=== PATIENT | female | born 1935 | race Caucasian/White ===

== ENCOUNTER 2016-11-20 10:39 | Emergency (ER) | payer MEDICARE ==
[~2016-11-20] VITALS: Ht 162.6 cm; Wt 62.0 kg
[~2016-11-20 10:39] MED LIST: ALIG4CAP PO; ASPI81TA45 PO; DIOV80TA4 PO; PANT40IN3 PO; PRAV20 PO
[2016-11-20 11:11] VITALS: BP 137/68; PULSE 83; RESP 18; TEMP 98
[2016-11-20] MEDS ORDERED: PANT40TA3 PO (11:17)
[2016-11-20] MEDS ORDERED: LACTCAP8 PO (11:17)
[2016-11-20] MEDS ORDERED: DIOV80TA4 PO (11:17)
[2016-11-20] MEDS ORDERED: ASPI1TAB69 PO (11:17)
[2016-11-20] MEDS ORDERED: PRAV20TA2 PO (11:17)
--- NOTE | 2016-11-20 11:53 | RADHPO ---
EXAM DATE/TIME: 11/20/2016 11:25 [facility] COMPARISON: No previous studies available for comparison. INDICATIONS : Right hand pain & swelling post fall. MEDICAL HISTORY : Hypertension. Chronic obstructive pulmonary disease. Gastroesophageal reflux disease. SURGICAL HISTORY : section. Abdominal aortic aneurysm repair. ORIF left thumb. Cataract. ENCOUNTER: Initial ACUITY: 3 days PAIN SCORE: 10/10 LOCATION: Right hand FINDINGS: Three view examination of the right hand demonstrates a questionable fracture involving the base of t he fourth proximal phalanx. Recommend correlation with point tenderness. Otherwise no other definite acute bony fractures are demonstrated.. There is osteopenia of the bony structures. There is evidence of previous internal fixation of the first proximal phalanx. There is an old fracture involving the proximal carpal navicular bone with sclerosis. There is osteoarthritis involving the PIP and DIP join ts.. CONCLUSION: 1. Possible nondisplaced fracture involving the base of the fourth proximal phalanx. Recommend correl ation with point tenderness. 2. Old fracture involving the carpal navicular bone. 3. Osteoarthritis Tono Irvin MD on November 20, 2016 at 11:48 Board Certified Radiologist. This report was verified electronically.
--- NOTE | 2016-11-20 11:54 | RADHPO ---
EXAM DATE/TIME: 11/20/2016 11:28 [facility] COMPARISON: No previous studies available for comparison. INDICATIONS : Right wrist pain/swelling post fall. MEDICAL HISTORY : Hypertension. Chronic obstructive pulmonary disease. Gastroesophageal reflux disease. SURGICAL HISTORY : Abdominal aortic aneurysm repair. section. ORIF left thumb. Cataract. ENCOUNTER: Initial ACUITY: 3 days PAIN SCORE: 10/10 LOCATION: Right wrist FINDINGS: Three view examination of the right wrist demonstrates an old fracture involving the carpal navicular bone with sclerosis. There is osteopenia the bony structures. There is osteoarthritis at the radioca rpal joint. No definite acute fracture or joint dislocation is seen at the wrist. There appears to be a possible nondisplaced fracture involving the base of the fourth proximal phalanx. Recommend correl ation with point tenderness.. CONCLUSION: No acute fracture involving the wrist. Osteoarthritis. Tono Irvin MD on November 20, 2016 at 11:51 Board Certified Radiologist. This report was verified electronically.
--- NOTE | 2016-11-20 12:08 | PD ---
HPI Chief Complaint: Injury Time Seen by Provider: 11:45 Travel History International Travel<30 days: No Contact w/Intl Traveler<30days: No Traveled to known affect area: No History of Present Illness HPI Patient is an 81-year-old female presenting to emergency department for evaluation of right hand pain. Patient had a mechanical fall on Wednesday (2 days ago). Patient tripped and fell onto her outstretched hand. She presents today with pain and swelling in the fourth and fifth fingers as well as over the fourth and fifth MCP's. She denies any head injury, loss of consciousness, chest pain, shortness of breath, dizziness prior to or after the fall. She reports the pain is a 5 out of 10. Patient does take a baby aspirin daily. PFSH Past Medical History Cancer: No Cardiovascular Problems: Yes (AORTIC STENT) High Cholesterol: Yes COPD: Yes Diabetes: No Endocrine: No GERD: Yes Genitourinary: No Hepatitis: No Hiatal Hernia: No Hypertension: Yes Immune Disorder: No Musculoskeletal: No Neurologic: No Psychiatric: No Reproductive: No Thyroid Disease: No Tetanus Vaccination: > 5 Years Influenza Vaccination: Yes Menopausal: Yes Past Surgical History Abdominal Surgery: Yes (INTRAVASC. AAA STENT PLACEMENT) AICD: No Body Medical Devices: right thumb hardware AAA STENT Cardiac Surgery: No Section: Yes Ear Surgery: No Endocrine Surgery: No Eye Surgery: Yes (LEFT EYE CATARACT EXTRACT.) Genitourinary Surgery: No Joint Replacement: No Pacemaker: No Thoracic Surgery: No Tonsillectomy: Yes Other Surgery: Yes (GANGLION CYST) Social History Alcohol Use: Yes (2 DRINKS PER WEEK) Tobacco Use: No Substance Use: No Allergies-Medications (Allergen,Severity, Reaction): Coded Allergies: Codeine (Unverified Adverse Reaction, Intermediate, NAUSEA VOMITING, ) Reported Meds & Prescriptions Reported Meds & Active Scripts Active Reported Pravastatin 20 Mg Tab 20 Mg PO DAILY Probiotic (Lactobacillus Acidophilus) 1 Cap Cap 1 Cap PO TIDAC Pantoprazole (Pantoprazole Sodium) 40 Mg Tab 40 Mg PO DAILY Diovan (Valsartan) 80 Mg Tab 80 Mg PO DAILY Aspirin 81 Mg Tabdr 81 Mg PO DAILY Review of Systems Except as stated in HPI: all other systems reviewed are Neg Musculoskeletal: Positive: Myalgias, Arthralgias, Edema, Pain Skin: Positive Change in Pigmentation Physical Exam Narrative GENERAL: Well-developed, well-nourished, alert elderly female. Resting comfortably in no acute distress. SKIN: Warm and dry. HEAD: Atraumatic. Normocephalic. EYES: Pupils equal and round. No scleral icterus. No injection or drainage. ENT: No nasal bleeding or discharge. Mucous membranes pink and moist. NECK: Trachea midline. No JVD. CARDIOVASCULAR: Regular rate and rhythm. No murmur appreciated. RESPIRATORY: No accessory muscle use. Clear to auscultation. Breath sounds equal bilaterally. GASTROINTESTINAL: Abdomen soft, non-tender, nondistended. Hepatic and splenic margins not palpable. MUSCULOSKELETAL: No obvious deformities. No clubbing. No cyanosis. Edema and mild ecchymosis noted to the fourth and fifth fingers on the right hand as well as the dorsal aspect of the right hand over the MCP. Decreased strength in right hand physically in the fourth and fifth fingers, positive radial pulse, brisk less than 3 second capillary refill. NEUROLOGICAL: Awake and alert. No obvious cranial nerve deficits. Motor grossly within normal limits. Normal speech. PSYCHIATRIC: Appropriate mood and affect; insight and judgment normal. Data Data Last Documented VS Vital Signs Date Time Temp Pulse Resp B/P Pulse Ox O2 Delivery O2 Flow Rate FiO2 11/20/16 11:11 98.0 83 18 137/68 Orders Hand, Complete ([id number]) (11/20/16 ) Wrist, Complete ([id number]) (11/20/16 ) Ct Brain W/O Iv Contrast(Rout) (11/20/16 ) [facility] Medical Decision Making Medical Screen Exam Complete: Yes Emergency Medical Condition: Yes Interpretation(s) Vital Signs Date Time Temp Pulse Resp B/P Pulse Ox O2 Delivery O2 Flow Rate FiO2 11/20/16 11:11 98.0 83 18 137/68 Differential Diagnosis Fracture versus sprain versus strain versus dislocation versus hemorrhage versus other Narrative Course Patient is an 81-year-old female presenting to the emergency department for evaluation of right hand pain after mechanical fall 2 days ago. Patient is neurologically intact. Patient appears younger than stated age, and has been active since the fall. She does take baby aspirin daily. Patient's vital signs are stable. Imaging ordered and pending. X-ray of the right hand shows a possible nondisplaced proximal phalanx fracture of the fourth finger. Radiologist commended correlation with point tenderness. Patient is tender over that finger specifically. CT scan of the brain pending. Right fourth and fifth fingers will be nieves taped. Patient is refusing the CT scan of her brain. Patient was educated on the risks versus benefit of CT scan. She was educated on the signs and symptoms of a stroke/hemorrhage. She was given strict return precautions. Patient is accompanied by a family member who also verbalized understanding of these instructions. It has been 48 hours since patient fell, she is neurologically intact. Patient is encouraged to follow-up with hand surgeon, she is encouraged follow-up with her primary doctor. Additionally patient can return to emergency department for any new or worsening symptoms. Patient is stable for discharge. Diagnosis Primary Impression: Proximal phalanx fracture of finger Qualified Code: S62.644A - Closed nondisplaced fracture of proximal phalanx of right ring finger, initial encounter Referrals: Hand Surgeon 1 week Patient Instructions: Finger Fracture (ED), General Instructions Additional Instructions: Follow-up with hand surgeon Follow-up with her primary doctor Take [id number] acetaminophen or ibuprofen as needed and as directed for pain Rest, ice, elevate extremity to help alleviate swelling. Med/Other Pt SpecificInfo: No Change to Meds Disposition: 01 DISCHARGE HOME Condition: Stable Shalini Pedersen Nov 20, 2016 12:07
== END 2016-11-20 12:47 | disposition home or self-care (01) ==
LOC: PHED 10:39 → PHEFT 12:47
DX: S62.644A Nondisplaced fracture of proximal phalanx of right ring finger, initial encounter for closed fracture (principal); W01.0XXA Fall on same level from slipping, tripping and stumbling without subsequent striking against object, initial encounter
CPT/HCPCS: 73110; 73130; 99283

== ENCOUNTER 2017-01-07 14:34 | Emergency (ER) | payer MEDICARE ==
[~2017-01-07] VITALS: Ht 162.6 cm; Wt 63.0 kg
[~2017-01-07 14:34] MED LIST changes: -ALIG4CAP PO; +ASPI1TAB69 PO; -ASPI81TA45 PO; +LACTCAP8 PO; -PANT40IN3 PO; +PANT40TA3 PO; -PRAV20 PO; +PRAV20TA2 PO
[2017-01-07 15:01] VITALS: BP 179/105; PULSE 94; RESP 16; TEMP 97.9; O2SAT 98
--- NOTE | 2017-01-07 15:37 | PD ---
HPI Chief Complaint: Laceration/Skin Injury Time Seen by Provider: 15:34 Travel History International Travel<30 days: No Contact w/Intl Traveler<30days: No Traveled to known affect area: No History of Present Illness HPI 81-year-old female with history of hypertension, hyperlipidemia presents to the emergency department for evaluation of laceration to left eyebrow status post trip and fall. Patient states that about an hour ago she was taking the mail to her neighbors front doorstep when she turned too quickly and tripped over her own shoes. States that she fell onto her left knee and hit her left forehead on the pavement. Denies loss of consciousness. Complains of pain around her left forehead and eyebrow where she has a laceration. Denies any headache, lightheadedness, dizziness, nausea, vomiting, numbness or tingling, neck pain, back pain. Unsure of last tetanus vaccination. She takes aspirin daily. Denies any anticoagulation. No other complaints. PFSH Past Medical History Cancer: No Cardiovascular Problems: Yes (AORTIC STENT) High Cholesterol: Yes COPD: Yes Diabetes: No Endocrine: No GERD: Yes Genitourinary: No Hepatitis: No Hiatal Hernia: No Hypertension: Yes Immune Disorder: No Musculoskeletal: No Neurologic: No Psychiatric: No Reproductive: No Thyroid Disease: No Tetanus Vaccination: Unknown Menopausal: Yes Past Surgical History Abdominal Surgery: Yes (INTRAVASC. AAA STENT PLACEMENT) AICD: No Body Medical Devices: right thumb hardware AAA STENT Cardiac Surgery: No Section: Yes Ear Surgery: No Endocrine Surgery: No Eye Surgery: Yes (LEFT EYE CATARACT EXTRACT.) Genitourinary Surgery: No Joint Replacement: No Pacemaker: No Thoracic Surgery: No Tonsillectomy: Yes Other Surgery: Yes (GANGLION CYST) Social History Alcohol Use: Yes (2 DRINKS PER WEEK) Tobacco Use: No Substance Use: No Allergies-Medications (Allergen,Severity, Reaction): Coded Allergies: Codeine (Unverified Adverse Reaction, Intermediate, NAUSEA VOMITING, ) Reported Meds & Prescriptions Reported Meds & Active Scripts Active Reported Pravastatin 20 Mg Tab 20 Mg PO DAILY Probiotic (Lactobacillus Acidophilus) 1 Cap Cap 1 Cap PO TIDAC Pantoprazole (Pantoprazole Sodium) 40 Mg Tab 40 Mg PO BID Diovan (Valsartan) 80 Mg Tab 80 Mg PO DAILY Aspirin 81 Mg Tabdr 81 Mg PO DAILY Review of Systems Except as stated in HPI: all other systems reviewed are Neg Physical Exam Narrative GENERAL: Well-nourished and well-developed pleasant elderly female patient in no acute distress. SKIN: 2 cm laceration to left eyebrow. HEAD: Normocephalic and atraumatic. Tenderness to palpation of left eyebrow region. EYES: No scleral icterus, injection, or drainage. PERRLA. EOMI. No hyphema present. ENT: No septal hematoma or hemotympanum noted. Oropharynx is clear and the airway is patent. NECK: Supple and the trachea is midline. No obvious deformities, crepitus, or midline tenderness noted. CARDIOVASCULAR: Regular rate and rhythm. RESPIRATORY: Breath sounds are equal bilaterally with no accessory muscle use, wheezing, rhonchi, or crackles. GASTROINTESTINAL: Abdomen is soft, non-tender, and nondistended. MUSCULOSKELETAL: Ecchymosis with tenderness to palpation of left anterior knee, full range of motion. DP pulses are 2+ bilaterally. No obvious deformities, swelling, cyanosis, or ecchymosis is present throughout the upper and lower extremities. Patient has full range of motion without any signs of neurovascular compromise. NEUROLOGICAL: Awake, alert, and oriented. Normal speech and gait. Cranial nerves are grossly intact. Data Data Last Documented VS Vital Signs Date Time Temp Pulse Resp B/P Pulse Ox O2 Delivery O2 Flow Rate FiO2 01/07/17 15:01 97.9 94 16 179/[address] Brain W/O Iv Contrast(Rout) (01/07/17 15:32) Ct Facial Bones W/O Iv Cont (01/07/17 15:32) Knee, Complete (4vws) (01/07/17 15:32) Lidocai-Epi 1%-1:100,000 Inj (Xylocaine- (01/07/17 15:45) Tetanus/Diphtheria Tox Adult (Tetanus/Di (01/07/17 15:45) MDM Medical Decision Making Medical Screen Exam Complete: Yes Emergency Medical Condition: Yes Differential Diagnosis Laceration versus abrasion versus contusion versus intracranial hemorrhage versus fracture Narrative Course 81-year-old female presents to the emergency department for evaluation of fall with left eyebrow laceration. Patient is afebrile, vital signs are stable. No focal neurologic deficits. Imaging of the patient's head and facial bones has been ordered and is pending. X-ray imaging of the left knee has been ordered and is pending. Tetanus vaccination was updated here in the ED. Laceration repairs performed, see procedure narrative for further details. Head CT is negative for any acute abnormalities. CT of the facial bones is negative for any acute abnormalities. X-ray of the left knee is negative for any acute abnormalities. Discussed supportive care and proper wound care techniques with the patient and family. She is stable for discharge home. Patient verbalizes understanding and agreement with treatment plans. Procedures Procedure Narrative LACERATION LOCATION: Left eyebrow LENGTH: 2 cm NUMBER OF STITCHES/TONNY: 8 sutures REPAIR: The area of the laceration was prepped with Betadine and sterilely draped. The laceration was infiltrated with 1% lidocaine with epinephrine. The wound was copiously irrigated and explored without evidence of foreign body , tendon injury or neurovascular injury. The wound was closed using 5. 0 Ethilon. This was a single layer repair. Antibiotic ointment and a sterile dressing was applied. The patient was advised to keep the dressing clean and dry. Patient tolerated the procedure well. Diagnosis Primary Impression: Facial laceration Qualified Code: S01.81XA - Facial laceration, initial encounter Additional Impressions: Periorbital contusion of left eye Qualified Code: S05.12XA - Periorbital contusion of left eye, initial encounter Contusion of left knee Qualified Code: S80.02XA - Contusion of left knee, initial encounter Fall Qualified Code: W19.XXXA - Fall, initial encounter Referrals: Primary Care Physician Patient Instructions: Contusion in Adults (ED), Facial Laceration (ED), General Instructions Additional Instructions: Wash wounds gently with soap and water while in the shower. Apply topical antibiotic ointment twice daily. Have sutures removed in 5-7 days. Apply ice for 20 minutes on, 20 minutes off. Follow-up with your Primary Care Physician. Return to the ED for any acute worsening of symptoms. Med/Other Pt SpecificInfo: No Change to Meds Disposition: 01 DISCHARGE HOME Condition: Stable Keeley Keller Jan 07, 2017 15:37
[2017-01-07] MEDS ORDERED: LIDOCAINE 1%/EPINEPHrine 1:100,000 SOLN 20 ML VIAL INFIL ONE (15:45)
[2017-01-07] MEDS ORDERED: TETANUS/DIPHTHERIA TOXOID ADULT 0.5 ML VIAL IM ONE (15:45)
--- NOTE | 2017-01-07 16:06 | RADHPO ---
EXAM DATE/TIME: 01/07/2017 15:55 [facility] COMPARISON: No previous studies available for comparison. INDICATIONS : Left knee pain and bruising after fall today. MEDICAL HISTORY : None. SURGICAL HISTORY : None. ENCOUNTER: Initial ACUITY: 1 day PAIN SCORE: 4/10 LOCATION: Left knee FINDINGS: Four view examination of the left knee demonstrates no evidence of fracture or dislocation. Bony min eralization is normal. The articular surfaces are intact. The suprapatellar soft tissues have a nor mal configuration. CONCLUSION: Unremarkable examination of the left knee. Jose David Simmons MD on January 07, 2017 at 16:05 Board Certified Radiologist. This report was verified electronically.
--- NOTE | 2017-01-07 16:17 | RADHPO ---
EXAM DATE/TIME: 01/07/2017 16:00 [facility] COMPARISON: No previous studies available for comparison. INDICATIONS : Trauma. Fall. Laceration above left eye. RADIATION DOSE: 62.59 CTDIvol (mGy) MEDICAL HISTORY : Chronic obstructive pulmonary disease. Hypertension. SURGICAL HISTORY : None. ENCOUNTER: Initial ACUITY: 1 day PAIN SCALE: 7/10 LOCATION: Left cranial TECHNIQUE: Multiple contiguous axial images were obtained of the head. Using automated exposure control and adj ustment of the mA and/or kV according to patient size, radiation dose was kept as low as reasonably a chievable to obtain optimal diagnostic quality images. FINDINGS: CEREBRUM: The ventricles are normal for age. No evidence of midline shift, mass lesion, hemorrhage or acute in farction. No extra-axial fluid collections are seen. POSTERIOR FOSSA: The cerebellum and brainstem are intact. The 4th ventricle is midline. The cerebellopontine angle i s unremarkable. EXTRACRANIAL: The visualized portion of the orbits is intact. SKULL: The calvaria is intact. No evidence of skull fracture. CONCLUSION: Normal examination. Jose David Simmons MD on January 07, 2017 at 16:15 Board Certified Radiologist. This report was verified electronically.
--- NOTE | 2017-01-07 16:34 | RADHPO ---
EXAM DATE/TIME: 01/07/2017 16:00 [facility] COMPARISON: No previous studies available for comparison. INDICATIONS : Trauma. Fall. Laceration above left eye. RADIATION DOSE: CTDIvol (mGy) MEDICAL HISTORY : Chronic obstructive pulmonary disease. Hypertension. SURGICAL HISTORY : None. ENCOUNTER: Initial ACUITY: 1 day PAIN SCORE: 7/10 LOCATION: Left superior orbit. TECHNIQUE: Volumetric scanning of the facial bones was performed. Using automated exposure control and adjustme nt of the mA and/or kV according to patient size, radiation dose was kept as low as reasonably achiev able to obtain optimal diagnostic quality images. FINDINGS: ORBITS: The orbital and infraorbital osseous structures are intact. The retroconal structures have a normal configuration. No radiopaque foreign bodies are seen. NASAL BONE: The nasal bone and maxillary spine are intact ZYGOMATIC ARCHES: Symmetric without evidence of fracture. SINUSES: The maxillary, ethmoid and frontal sinuses are intact. No air-fluid levels seen. NASAL CAVITY: The nasal septum is intact and midline. The lacrimal ducts are intact. SOFT TISSUES: No radiopaque foreign bodies seen. Marked soft-tissue swelling overlying the left frontal and orbital regions without underlying fracture. INTRACRANIAL: No intracranial air seen. CRIBIFORM PLATE: Grossly intact. CONCLUSION: Marked soft tissue swelling left frontal and periorbital region without evidence of acute fracture. Jose David Simmons MD on January 07, 2017 at 16:32 Board Certified Radiologist. This report was verified electronically.
== END 2017-01-07 17:00 | disposition home or self-care (01) ==
LOC: PHEFT 14:34
DX: S01.112A Laceration without foreign body of left eyelid and periocular area, initial encounter (principal); S80.02XA Contusion of left knee, initial encounter; Z23 Encounter for immunization; I10 Essential (primary) hypertension; E78.00 Pure hypercholesterolemia, unspecified; W01.0XXA Fall on same level from slipping, tripping and stumbling without subsequent striking against object, initial encounter
CPT/HCPCS: 12011; 70450; 70486; 73564; 90471; 90714

== ENCOUNTER 2018-07-15 13:30 | Inpatient (IN) ==
--- NOTE | 2018-07-15 14:53 | ED ---
HPI General Chief Complaint: Fall Stated Complaint: fall Time Seen by Provider: 07/15/18 14:04 Source: patient Mode of arrival: EMS Limitations: no limitations History of Present Illness HPI Narrative: 83-year-old female with a history of HTN and CAD s/p stent placement on ASA presents to the emergency department via EVAC for evaluation of right leg pain after fall from a ladder today. Patient states that she was getting a box out of a loft when she missed a step and she fell back, landing on her right hip. Patient denies hitting her back, neck, or head. She denies loss consciousness, blurred vision, dizziness. Denies shortness of breath or chest pain. Denies numbness or tingling in extremities. Patient states her right hip pain is mild in severity, worse with movement. She was unable to stand up after the incident. MD complaint: Reports fall Onset (ago): hour(s) Fall from: standing Fall witnessed: no Place fall occurred: home Loss of consciousness: none Prolonged down time: no Symptoms prior to fall: Reports none Context: Reports tripped/slipped Location of injury: Reports pelvis Location of injury - extremities: Right: thigh Severity: mild Quality: Reports aching Associated symptoms (after fall): Reports denies Related Data Allergies Allergy/AdvReac Type Severity Reaction Status Date / Time codeine AdvReac Intermediate NAUSEA Unverified 05/11/17 20:17 VOMITING Review of Systems ROS: all other systems reviewed are negative [facility] [place] Medical History Medical History CAD (coronary artery disease) (Acute) HLD (hyperlipidemia) (Acute) HTN (hypertension) (Acute) Surgical History Surgical History H/O cardiac catheterization (Acute) Family History Family History Mother Gynecologic cancer Father Myocardial infarct Social History Social History Substance History: No History of Abuse Second Hand Smoke Exposure: No Smoking Status: Former smoker (Quit 7yrs ago, smoked 1PPDx >20yrs) Tobacco Type: Cigarettes How Often Do You Have a Drink Containing Alcohol: Never Recent Travel in [place] within the Last 8 Weeks: No Recent Out of Country Travel within the Last 8 Weeks: No Immunization History Tetanus Immunization: Unsure Exam Narrative Exam Narrative: GENERAL: Well-developed, well-nourished in no apparent distress SKIN: Focused skin assessment warm/dry. HEAD: Atraumatic. Normocephalic. EYES: Pupils equal and round. No scleral icterus. No injection or drainage. ENT: No nasal bleeding or discharge. Mucous membranes pink and moist. NECK: Trachea midline. No JVD. No midline tenderness CARDIOVASCULAR: Regular rate and rhythm. No murmur appreciated. RESPIRATORY: No accessory muscle use. Clear to auscultation. Breath sounds equal bilaterally. GASTROINTESTINAL: Abdomen soft, non-tender, nondistended. Hepatic and splenic margins not palpable. MUSCULOSKELETAL: No obvious deformities. No clubbing. No cyanosis. No edema. No tenderness palpation of the pelvis. RLE- anatomical position,slightly shortened, flexed knee as position of comfort , pulse, motor, sensory intact. NEUROLOGICAL: Awake and alert. No obvious cranial nerve deficits. Motor grossly within normal limits. Normal speech. PSYCHIATRIC: Appropriate mood and affect; insight and judgment normal. Course Initial Documented Vital Signs Temperature 97.8 F 07/15/18 14:09 Pulse Rate 76 07/15/18 14:09 Respiratory Rate 17 07/15/18 14:09 Blood Pressure 157/69 H 07/15/18 14:09 Pulse Oximetry 98 07/15/18 14:09 Last Documented Vital Signs Temperature 97.7 F 07/15/18 20:00 Pulse Rate 72 07/15/18 20:00 Respiratory Rate 18 07/15/18 20:00 Blood Pressure 130/60 07/15/18 20:00 Pulse Oximetry 94 L 07/15/18 20:00 Medical Decision Making MDM Narrative Medical decision making narrative: 83-year-old female presents to the emergency department via EVAC for evaluation of right hip and leg pain that started after a fall from a ladder today. She denies subsequent trauma of the back, neck or head. Offer pain medication the patient was rather adamant to not receive anything. After imaging studies, she requested medication. Ativan, toradol, and morphine eventually for pain. I spoke with Dr. Early who recommended NPO after midnight and surgery tomorrow. I spoke to Dr. Salguero who agreed to the admission. Medical Screen Exam Complete: Yes Emergency Medical Condition: Yes Differential Diagnosis Differential Diagnosis: Right hip fracture, right hip contusion, right femur fracture, right femur contusion, dislocation Lab Data Result diagrams: 07/15/18 16:30 07/15/18 16:30 Lab Results 07/15/18 07/15/18 07/15/18 Range/Units 16:30 16:30 16:30 WBC 11.1 H (4.0-11.0) th/mm3 RBC 3.36 L (4.00-5.30) mil/mm3 Hgb 10.8 L (11.6-15.3) gm/dL Hct 31.6 L (35.0-46.0) % MCV 94.0 (80.0-100.0) fL MCH 32.0 (27.0-34.0) pg MCHC 34.1 (32.0-36.0) % RDW 13.3 (11.6-17.2) % Plt Count 204 (150-450) th/mm3 MPV 8.7 (7.0-11.0) fL Neut % (Auto) 85.9 H (16.0-70.0) % Lymph % (Auto) 6.6 L (9.0-44.0) % Garvin % (Auto) 5.9 (0.0-8.0) % Eos % (Auto) 1.0 (0.0-4.0) % Baso % (Auto) 0.6 (0.0-2.0) % Neut # (Auto) 9.5 H (1.8-7.7) th/mm3 Lymph # (Auto) 0.7 L (1.0-4.8) th/mm3 Garvin # (Auto) 0.7 (0.0-0.9) th/mm3 Eos # (Auto) 0.1 (0.0-0.4) th/mm3 Baso # (Auto) 0.1 (0.0-0.2) th/mm3 WBC Differential . Differential Comment Auto diff final PT 11.0 (9.8-11.6) sec INR 1.1 Ratio APTT 25.0 (24.3-30.1) sec Sodium 138 (136-145) meq/L Potassium 4.2 (3.5-5.1) meq/L Chloride 106 (98-107) meq/L Carbon Dioxide 26.2 (21.0-32.0) meq/L Anion Gap 6 (5-15) meq/L BUN 28 H (7-18) mg/dL Creatinine 1.00 (0.50-1.00) mg/dL Estimated GFR 53 L (>89) mL/min Random Glucose 97 (74-106) mg/dL Calcium 9.0 (8.5-10.1) mg/dL Total Bilirubin 0.3 (0.2-1.0) mg/dL AST 20 (15-37) U/L ALT 19 (10-53) U/L Alkaline Phosphatase 88 (45-117) U/L Total Protein 6.5 (6.4-8.2) g/dL Albumin 3.3 L (3.4-5.0) g/dL Urine Color (Yellw/Straw) Urine Clarity (Clear) Urine pH (5.0-8.5) Ur Specific [place] (1.002-1.035) Urine Protein (Neg-Trace) mg/dL Urine Glucose (UA) (Negative) mg/dL Urine Ketones (Negative) mg/dL Urine Occult Blood (Negative) Urine Nitrate (Negative) Urine Bilirubin (Negative) Urine Urobilinogen (Less than 2) mg/dL Ur Leukocyte Esterase (Negative) Urine RBC (0-3) /hpf Urine WBC (0-5) /hpf Ur Squamous Epith Cells (0-5) /hpf Hyaline Casts (0-3) /lpf Micro UA Comment Ur Microscopic Review Urine Culture Comments 07/15/18 Range/Units 18:22 WBC (4.0-11.0) th/mm3 RBC (4.00-5.30) mil/mm3 Hgb (11.6-15.3) gm/dL Hct (35.0-46.0) % MCV (80.0-100.0) fL MCH (27.0-34.0) pg MCHC (32.0-36.0) % RDW (11.6-17.2) % Plt Count (150-450) th/mm3 MPV (7.0-11.0) fL Neut % (Auto) (16.0-70.0) % Lymph % (Auto) (9.0-44.0) % Garvin % (Auto) (0.0-8.0) % Eos % (Auto) (0.0-4.0) % Baso % (Auto) (0.0-2.0) % Neut # (Auto) (1.8-7.7) th/mm3 Lymph # (Auto) (1.0-4.8) th/mm3 Garvin # (Auto) (0.0-0.9) th/mm3 Eos # (Auto) (0.0-0.4) th/mm3 Baso # (Auto) (0.0-0.2) th/mm3 WBC Differential Differential Comment PT (9.8-11.6) sec INR Ratio APTT (24.3-30.1) sec Sodium (136-145) meq/L Potassium (3.5-5.1) meq/L Chloride (98-107) meq/L Carbon Dioxide (21.0-32.0) meq/L Anion Gap (5-15) meq/L BUN (7-18) mg/dL Creatinine (0.50-1.00) mg/dL Estimated GFR (>89) mL/min Random Glucose (74-106) mg/dL Calcium (8.5-10.1) mg/dL Total Bilirubin (0.2-1.0) mg/dL AST (15-37) U/L ALT (10-53) U/L Alkaline Phosphatase (45-117) U/L Total Protein (6.4-8.2) g/dL Albumin (3.4-5.0) g/dL Urine Color Yellow (Yellw/Straw) Urine Clarity Hazy H (Clear) Urine pH 6.0 (5.0-8.5) Ur Specific [place] 1.010 (1.002-1.035) Urine Protein Negative (Neg-Trace) mg/dL Urine Glucose (UA) Negative (Negative) mg/dL Urine Ketones Negative (Negative) mg/dL Urine Occult Blood Small H (Negative) Urine Nitrate Negative (Negative) Urine Bilirubin Negative (Negative) Urine Urobilinogen Less than 2 (Less than 2) mg/dL Ur Leukocyte Esterase Moderate H (Negative) Urine RBC 2 (0-3) /hpf Urine WBC 8 H (0-5) /hpf Ur Squamous Epith Cells 4 (0-5) /hpf Hyaline Casts 3 (0-3) /lpf Micro UA Comment Culture indicated Ur Microscopic Review Not Reportable Urine Culture Comments Culture indicated Imaging Data Radiologist's impression: Chest X-Ray 07/15/18 14:23 CONCLUSION: No focal consolidation or effusion. Femur X-Ray 07/15/18 14:24 CONCLUSION: Right femoral neck fracture. Hip X-Ray 07/15/18 14:24 CONCLUSION: Right proximal femur fracture. Discharge Plan Discharge Disposition Patient Disposition: 30 Still Patient Discharge Condition Condition: Stable Discharge Details Diagnosis: Femur fracture, right Physicians Team ED Provider: Teddy Allen ED Midlevel Provider: Clare Noonan Primary Care Provider: UNKNOWN, Attending Provider: Carmelita Salguero Other Providers: Deepak Early Status ED Status: Left Department Discharge Information Discharge Date/Time: 07/15/18 18:52
[2018-07-15] MEDS ORDERED: Ketorolac Inj 30 MG/ML (IVP) Vial IV.PUSH ONE (15:00)
--- NOTE | 2018-07-15 15:24 | XR ---
EXAM DATE: 07/15/2018 2:24 PM EDT AGE/SEX: 83 years / Female INDICATIONS: Right hip pain, post fall today. CLINICAL DATA: This is the patient's initial encounter. Patient reports that signs and symptoms have been present for 1 day and indicates a pain score of 8/10. MEDICAL/SURGICAL HISTORY: None. None. COMPARISON: [facility], XR HIP AP AND LAT, RIGHT, 12/10/2017. . FINDINGS: The aorta and iliac vessels. Bone density is diminished. There is a mildly displaced fracture through the subcapital femoral neck, right femur with superior displacement of the femoral shaft noted. CONCLUSION: Right proximal femur fracture. Electronically signed by: Teddy Duque MD 07/15/2018 3:23 PM EDT
--- NOTE | 2018-07-15 15:24 | XR ---
EXAM DATE: 07/15/2018 2:24 PM EDT AGE/SEX: 83 years / Female INDICATIONS: Right upper leg pain, post fall today. CLINICAL DATA: This is the patient's initial encounter. Patient reports that signs and symptoms have been present for 1 day and indicates a pain score of 8/10. MEDICAL/SURGICAL HISTORY: None. None. COMPARISON: [facility] [place], HIP RIGHT W AP PELVIS 2V, 07/15/2018. . FINDINGS: Subcapital femoral neck fracture, mildly displaced superiorly. No other fractures are seen. Bone dens ity is diminished. CONCLUSION: Right femoral neck fracture. Electronically signed by: Teddy Duque MD 07/15/2018 3:23 PM EDT
--- NOTE | 2018-07-15 15:25 | XR ---
EXAM DATE: 07/15/2018 2:23 PM EDT AGE/SEX: 83 years / Female INDICATIONS: Shortness of breath post fall. CLINICAL DATA: This is the patient's initial encounter. Patient reports that signs and symptoms have been present for 1 day and indicates a pain score of 0/10. MEDICAL/SURGICAL HISTORY: Chronic obstructive pulmonary disease. Hypertension. . Cardiac stent . COMPARISON: No prior exams available for comparison. FINDINGS: A single AP view of the chest demonstrates the lungs to be symmetrically aerated without evidence of mass, infiltrate or effusion. The cardiomediastinal contours are unremarkable. Osseous structures a re intact. CONCLUSION: No focal consolidation or effusion. Electronically signed by: Yoan Padilla MD 07/15/2018 3:24 PM EDT
[2018-07-15 16:39] LABS: Baso # (Auto) 0.1 th/mm3 (0.0-0.2); Baso % (Auto) 0.6 % (0.0-2.0); Eos # (Auto) 0.1 th/mm3 (0.0-0.4); Hematocrit 31.6 % (35.0-46.0); Hemoglobin 10.8 gm/dL (11.6-15.3); Lymph # (Auto) 0.7 th/mm3 (1.0-4.8); Lymph % (Auto) 6.6 % (9.0-44.0); Mean Corpuscular HGB Conc 34.1 % (32.0-36.0); Mean Platelet Volume 8.7 fL (7.0-11.0); Mono # (Auto) 0.7 th/mm3 (0.0-0.9); Mono % (Auto) 5.9 % (0.0-8.0); Neut # (Auto) 9.5 th/mm3 (1.8-7.7); Neut % (Auto) 85.9 % (16.0-70.0); Platelet Count 204 th/mm3 (150-450); Red Blood Count 3.36 mil/mm3 (4.00-5.30); Red Cell Distribution Width 13.3 % (11.6-17.2); White Blood Count 11.1 th/mm3 (4.0-11.0)
[2018-07-15 16:46] LABS: INR 1.1 Ratio
[2018-07-15 17:07] LABS: Albumin 3.3 g/dL (3.4-5.0); Anion Gap 6 meq/L (5-15); Aspartate Aminotransferase 20 U/L (15-37); Blood Urea Nitrogen 28 mg/dL (7-18); Carbon Dioxide 26.2 meq/L (21.0-32.0); Chloride 106 meq/L (98-107); Glomerular Filtration Rate 53 mL/min (>89); Glucose,Random 97 mg/dL (74-106); Potassium 4.2 meq/L (3.5-5.1); Sodium 138 meq/L (136-145)
[2018-07-15 17:12] LABS: Alanine Aminotransferase 19 U/L (10-53); Alkaline Phosphatase 88 U/L (45-117); Total Protein 6.5 g/dL (6.4-8.2)
[2018-07-15] MEDS ORDERED: Morphine Sulfate Inj 2 MG/ML Vial IV.PUSH ONE (17:20)
[2018-07-15] MEDS ORDERED: Bisacodyl 10 MG Supp RECTAL PRN (17:58)
[2018-07-15] MEDS ORDERED: Acetaminophen 325 MG Tablet PO PRN (17:58)
[2018-07-15] MEDS ORDERED: Morphine Sulfate Inj 2 MG/ML Vial IV.PUSH PRN (18:32)
--- NOTE | 2018-07-15 18:33 | P.HP ---
History of Present Illness Service: [facility] Primary Care Physician: UNKNOWN Chief Complaint: "I fell" History of Present Illness: 83-year-old female with PMH significant for HTN, HLD, CAD with stenting in the past and chronic constipation who presents to the ER via EVAC following a fall at home. Patient is seen and examined in the ER with friend Kimberly at bedside. Patient reports that she was at home going up and down her loft with the use of a ladder when at one point when she was making her way down she slipped. She reports falling on the floor and landing on her right side. With pain shooting to her right leg. Worse with movement, improved with rest. She denies hitting her head, no LOC. Denies any dizziness, lightheadedness, chest pain or palpitations prior to fall. At the current moment she is pain free as she received IV Morphine. She denies any numbness or tingling to right lower extremity. Patient and neighbor are both concerned over what the surgery will entail. They are requesting that the orthopedic doctor call patient's daughter prior to surgery. This was communicated to nurse. - Diagnosis (1) Femur fracture, right Inpatient Certification: I certify that the inpatient services were ordered in accordance with Medicare regulations governing the order. This includes certification that hospital inpatient services are reasonable and necessary and in the case of services not specified as inpatient-only under 42 CFR 419.22(n), that they are appropriately provided as inpatient services in accordance to with the 2-midnight benchmark under 43 CFR 412.3(e) Estimated Total Length of Stay (Days): 3 Plans for Post Hospital Care: Home Review of Systems All other systems reviewed negative except as stated [facility] - History History Provided By: Patient, Friend - Medical History Medical History: Medical History (Last Updated 07/15/18 @ 18:29 by Anabela Orozco) CAD (coronary artery disease) HLD (hyperlipidemia) HTN (hypertension) - Surgical History Surgical History: Surgical History (Last Updated 07/15/18 @ 18:30 by Anabela Orozco) H/O cardiac catheterization - Family History Family History: Family History (Last Updated 07/15/18 @ 18:31 by Anabela Orozco) Mother Gynecologic cancer Father Myocardial infarct - Tobacco History Second Hand Smoke Exposure: No Tobacco Use In Past 30 Days: No Smoking Status: Former smoker (Quit 7yrs ago, smoked 1PPDx >20yrs) Tobacco Type: Cigarettes - Alcohol History How Often Do You Have a Drink Containing Alcohol: Never - Substance Use History Substance History: No History of Abuse - Travel History Recent Travel in the [place] Within the Last 8 Weeks: No Recent Travel Out of the Country Within the Last 8 Weeks: No - Immunization History Tetanus Immunization: Unsure Medications and Allergies Active Medications: Active Medications Acetaminophen (Tylenol) 650 mg PO Q4H PRN PRN Reason: Temp > 100.4 Al Hydroxide/Mg Hydroxide (Milk Of Magnesia Liq) 30 ml PO Q12H PRN PRN Reason: Mild Constipation Bisacodyl (Dulcolax Supp) 10 mg RECTAL DAILY PRN PRN Reason: SEVERE CONSITIPATION Lactulose (Lactulose Liq) 30 ml PO DAILY PRN PRN Reason: SEVERE CONSITIPATION Ondansetron HCl (Zofran Inj) 4 mg IV.PUSH Q6H PRN PRN Reason: NAUSEA OR VOMITING Senna/Docusate Sodium (Celena-Colace) 1 tab PO BID TREVON Sennosides (Senokot) 17.2 mg PO Q12H PRN PRN Reason: Moderate Constipation Sodium Chloride (Ns Flush) 2 ml IV.FLUSH UNSCH PRN PRN Reason: FLUSH AFTER USING IV ACCESS Allergies Allergy/AdvReac Type Severity Reaction Status Date / Time codeine AdvReac Intermediate NAUSEA Unverified 05/11/17 20:17 VOMITING Exam Vital signs: Vital Signs 07/15/18 14:09 07/15/18 15:11 Temperature 97.8 F Pulse Rate 76 66 Respiratory Rate 17 17 Blood Pressure 157/69 H 181/79 H Pulse Oximetry 98 100 Intake & Output 07/14/18 07/15/18 07/15/18 18:59 06:59 18:59 Weight 61.235 kg Narrative: GENERAL: Well nourished, well developed female in no acute distress. SKIN: Warm and dry. HEAD: Atraumatic. Normocephalic. EYES: Pupils equal and round. No scleral icterus. No injection or drainage. ENT: No nasal bleeding or discharge. Mucous membranes pink and moist. NECK: Trachea midline. No JVD. CARDIOVASCULAR: Regular rate and rhythm. RESPIRATORY: No accessory muscle use. Clear to auscultation. Breath sounds equal bilaterally. GASTROINTESTINAL: Abdomen soft, non-tender, nondistended. +BS MUSCULOSKELETAL: Extremities without clubbing, cyanosis, or edema. No obvious deformities. RLE with + sensation, capillary refill <3seconds, leg warm. NEUROLOGICAL: Awake and alert. No obvious cranial nerve deficits. Motor grossly within normal limits. Bilateral UE strength 5/5, LLE strength 5/5, RLE strength limited due to fracture. Normal speech. PSYCHIATRIC: Appropriate mood and affect; insight and judgment normal. Results - Labs CBC & Chem 7: 07/15/18 16:30 07/15/18 16:30 Labs: Laboratory Results - last 24 hr 07/15/18 07/15/18 07/15/18 16:30 16:30 16:30 WBC 11.1 H RBC 3.36 L Hgb 10.8 L Hct 31.6 L MCV 94.0 MCH 32.0 MCHC 34.1 RDW 13.3 Plt Count 204 MPV 8.7 Neut % (Auto) 85.9 H Lymph % (Auto) 6.6 L [place] % (Auto) 5.9 Eos % (Auto) 1.0 Baso % (Auto) 0.6 Neut # (Auto) 9.5 H Lymph # (Auto) 0.7 L [place] # (Auto) 0.7 Eos # (Auto) 0.1 Baso # (Auto) 0.1 WBC Differential . Differential Comment Auto diff final PT 11.0 INR 1.1 APTT 25.0 Sodium 138 Potassium 4.2 Chloride 106 Carbon Dioxide 26.2 Anion Gap 6 BUN 28 H Creatinine 1.00 Estimated GFR 53 L Random Glucose 97 Calcium 9.0 Total Bilirubin 0.3 AST 20 ALT 19 Alkaline Phosphatase 88 Total Protein 6.5 Albumin 3.3 L - Imaging Impressions Chest X-Ray 07/15/18 14:23 CONCLUSION: No focal consolidation or effusion. Femur X-Ray 07/15/18 14:24 CONCLUSION: Right femoral neck fracture. Hip X-Ray 07/15/18 14:24 CONCLUSION: Right proximal femur fracture. Caprini VTE Risk Assessment Caprini VTE Risk Assessment: Moderate/High Risk (score >= 2) Caprini Risk Assessment Model: Point Value = 1 Point Value = 2 Point Value = 3 Point Value = 5 Age 41-60 Minor surgery BMI > 25 kg/m2 Swollen legs Varicose veins or History of unexplained or recurrent spontaneous Oral contraceptives or hormone replacement Sepsis (< 1 month) Serious lung disease, including pneumonia (< 1 month) Abnormal pulmonary function Acute myocardial infarction Congestive heart failure (< 1 month) History of inflammatory bowel disease Medical patient at bed rest Age 61-74 Arthroscopic surgery Major open surgery (> 45 min) Laparoscopic surgery (> 45 min) Malignancy Confined to bed (> 72 hours) Immobilizing plaster cast Central venous access Age >= 75 History of VTE Family history of VTE Factor V Leiden Prothrombin [id number] Lupus anticoagulant Anticardiolipin antibodies Elevated serum homocysteine Heparin-induced thrombocytopenia Other congenital or acquired thrombophilia Stroke (< 1 month) Elective arthroplasty Hip, pelvis, or leg fracture Acute spinal cord injury (< 1 month) Prophylaxis Regimen: Total Risk Factor Score Risk Level Prophylaxis Regimen 0-1 Low Early ambulation 2 Moderate Order ONE of the following: *Sequential Compression Device (SCD) *Heparin 5000 units SQ BID 3-4 Higher Order ONE of the following medications: *Heparin 5000 units SQ TID *Enoxaparin/Lovenox 40 mg SQ daily (WT < 150 kg, CrCl > 30 mL/min) *Enoxaparin/Lovenox 30 mg SQ daily (WT < 150 kg, CrCl > 10-29 mL/min) *Enoxaparin/Lovenox 30 mg SQ BID (WT < 150 kg, CrCl > 30 mL/min) AND/OR *Sequential Compression Device (SCD) 5 or more Highest Order ONE of the following medications: *Heparin 5000 units SQ TID (Preferred with Epidurals) *Enoxaparin/Lovenox 40 mg SQ daily (WT < 150 kg, CrCl > 30 mL/min) *Enoxaparin/Lovenox 30 mg SQ daily (WT < 150 kg, CrCl > 10-29 mL/min) *Enoxaparin/Lovenox 30 mg SQ BID (WT < 150 kg, CrCl > 30 mL/min) AND *Sequential Compression Device (SCD) Assessment and Plan - Assessment (1) Femur fracture, right Code(s): S72.91XA - Unspecified fracture of right femur, initial encounter for closed fracture Status: Acute - Plan 83-year-old female with PMH significant for HTN, HLD, CAD with stenting in the past and chronic constipation who presents to the ER via EVAC following a fall at home. Right proximal femur fracture Fall, mechanical - X-ray of hip with right proximal femur fracture - ED contacted who would like patient to remain NPO after MN for intervention - CBC with mild leukocytosis, likely stress related, mild anemia, CMP stable - Pain control with Eagle, IV Morphine for breakthrough pain - Consult PT following surgery HTN, chronic HLD, chronic -Resume home medications once med rec is completed DVT prophylaxis- SCD to LLE, no chemical anticoagulation in anticipation of surgery. Discussed Condition With: Patient, RN, neighbor Kimberly and (1) Femur fracture, right Qualifiers: Encounter type: initial encounter
[2018-07-15 18:49] LABS: Bilirubin,Urine Negative (Negative); Clarity,Urine Hazy (Clear); Color,Urine Yellow (Yellw/Straw); Glucose,Urine (UA) Negative (Negative); Hyaline Casts,Urine 3 /lpf (0-3); Leukocyte Esterase,Urine Moderate (Negative); Nitrite,Urine Negative (Negative); Squamous Epithelial Cell,Urine 4 /hpf (0-5)
[2018-07-15] MEDS: Senna/Docusate Sodium 8.6/50 MG Tablet PO SCH (20:07)
--- NOTE | 2018-07-16 07:22 | P.CONOP ---
[facility] Orthopedics Consult Note - [facility] Consult date: 07/16/18 Chief complaint: right femur fracture Narrative: 83-year-old female with PMH significant for HTN, HLD, CAD with stenting in the past and chronic constipation who presents to the ER via [facility] following a fall at home. Patient reports that she was at home going up and down her loft with the use of a ladder when at one point when she was making her way down she slipped. She reports falling on the floor and landing on her right side. With pain shooting to her right leg. Worse with movement, improved with rest. She denies hitting her head, no LOC. Denies any dizziness, lightheadedness, chest pain or palpitations prior to fall. The patient was diagnosed with a femoral neck fracture. Prior to this problem she did have several months of sciatica with low back pain and some right buttock pain. She said this did resolve recently. She is not describing any significant new numbness or tingling radiating down the right lower extremity. Prior to the fall she was fairly well functioning Review of Systems All other systems reviewed negative except as stated in [facility] PMFSH - History History Provided By: Patient, Friend - Medical History Medical History: Medical History (Last Reviewed 07/16/18 @ 07:18 by Deepak Early MD) CAD (coronary artery disease) HLD (hyperlipidemia) HTN (hypertension) - Surgical History Surgical History: Surgical History (Last Reviewed 07/16/18 @ 07:18 by Deepak Early MD) H/O cardiac catheterization - Family History Family History: Family History (Last Reviewed 07/16/18 @ 07:18 by Deepak Early MD) Mother Gynecologic cancer Father Myocardial infarct - Tobacco History Second Hand Smoke Exposure: No Tobacco Use In Past 30 Days: No Smoking Status: Former smoker (Quit 7yrs ago, smoked 1PPDx >20yrs) Tobacco Type: Cigarettes - Alcohol History How Often Do You Have a Drink Containing Alcohol: Never - Substance Use History Substance History: No History of Abuse - Travel History Recent Travel in the [place] Within the Last 8 Weeks: No Recent Travel Out of the Country Within the Last 8 Weeks: No - Immunization History Tetanus Immunization: Unsure Medications and Allergies Active Medications: Active Medications Acetaminophen (Tylenol) 650 mg PO Q4H PRN PRN Reason: Temp > 100.4 Hydrocodone Bitart/Acetaminophen ([place] 5/325) 1 tab PO Q6H PRN PRN Reason: Pain 2-5 Hydrocodone Bitart/Acetaminophen ([place] 10/325) 1 tab PO Q6H PRN PRN Reason: Pain 6-10 Last Admin: 07/15/18 19:39 Dose: 1 tab Al Hydroxide/Mg Hydroxide (Milk Of Magnesia Liq) 30 ml PO Q12H PRN PRN Reason: Mild Constipation Bisacodyl (Dulcolax Supp) 10 mg RECTAL DAILY PRN PRN Reason: SEVERE CONSITIPATION Clonidine HCl (Catapres) 0.1 mg PO Q6H PRN PRN Reason: SBP> OR = 180, DBP> OR = 100 Lactulose (Lactulose Liq) 30 ml PO DAILY PRN PRN Reason: SEVERE CONSITIPATION Morphine Sulfate (Morphine Inj) 2 mg IV.PUSH Q4H PRN PRN Reason: BREAKTHROUGH PAIN Ondansetron HCl (Zofran Inj) 4 mg IV.PUSH Q6H PRN PRN Reason: NAUSEA OR VOMITING Senna/Docusate Sodium (Celena-Colace) 1 tab PO BID TREVON Last Admin: 07/15/18 20:07 Dose: Not Given Sennosides (Senokot) 17.2 mg PO Q12H PRN PRN Reason: Moderate Constipation Sodium Chloride (Ns Flush) 2 ml IV.FLUSH UNSCH PRN PRN Reason: FLUSH AFTER USING IV ACCESS Allergies Allergy/AdvReac Type Severity Reaction Status Date / Time codeine AdvReac Intermediate NAUSEA Unverified 05/11/17 20:17 VOMITING Exam Vital signs: Vital Signs 07/15/18 14:09 07/15/18 15:11 07/15/18 20:00 Temperature 97.8 F 97.7 F Pulse Rate 76 66 72 Respiratory Rate 17 17 18 Blood Pressure 157/69 H 181/79 H 130/60 Pulse Oximetry 98 100 94 L 07/15/18 23:39 07/16/18 03:36 Temperature 97.8 F 97.8 F Pulse Rate 62 65 Respiratory Rate 18 16 Blood Pressure 112/57 L 110/55 L Pulse Oximetry 95 95 Intake & Output 07/15/18 07/16/18 07/16/18 18:59 06:59 18:59 Intake Total 240 / 240 Output Total 500 / 500 Balance -260 / -260 Weight 61.235 kg Intake: Oral 240 / 240 Output: Urine 500 / 500 Narrative: GENERAL: The patient is awake, alert and oriented x3. The patient is no significant distress. PSYCHIATRIC: Normal affect, insight, and judgment. HEENT: Head is atraumatic. Oropharynx is moist. Extraocular muscles are intact. NECK: Non-tender and supple. LUNGS: No audible wheezing. He has normal inspiratory effort with no signs of dyspnea HEART: Regular rate and rhythm. ABDOMEN: Soft, nontender, and nondistended. BACK: No CVA tenderness. EXTREMITIES/SKIN/NEURO/VASCULAR: The right hip is shortened and rotated. The right hip has some mild swelling. She moves the toes well on the right foot. She has a 2+ dorsalis pedis pulse. There is no swelling by the ankle. There is no tenderness of the knee or ankle. The left lower extremity was unremarkable. The patient actively moves her bilateral upper extremities. Results - Labs Result Diagrams: 07/15/18 16:30 07/15/18 16:30 Labs: Laboratory Results - last 24 hr 07/15/18 07/15/18 07/15/18 16:30 16:30 16:30 WBC 11.1 H RBC 3.36 L Hgb 10.8 L Hct 31.6 L MCV 94.0 MCH 32.0 MCHC 34.1 RDW 13.3 Plt Count 204 MPV 8.7 Neut % (Auto) 85.9 H Lymph % (Auto) 6.6 L [place] % (Auto) 5.9 Eos % (Auto) 1.0 Baso % (Auto) 0.6 Neut # (Auto) 9.5 H Lymph # (Auto) 0.7 L [place] # (Auto) 0.7 Eos # (Auto) 0.1 Baso # (Auto) 0.1 WBC Differential . Differential Comment Auto diff final PT 11.0 INR 1.1 APTT 25.0 Sodium 138 Potassium 4.2 Chloride 106 Carbon Dioxide 26.2 Anion Gap 6 BUN 28 H Creatinine 1.00 Estimated GFR 53 L Random Glucose 97 Calcium 9.0 Total Bilirubin 0.3 AST 20 ALT 19 Alkaline Phosphatase 88 Total Protein 6.5 Albumin 3.3 L Urine Color Urine Clarity Urine pH Ur Specific [place] Urine Protein Urine Glucose (UA) Urine Ketones Urine Occult Blood Urine Nitrate Urine Bilirubin Urine Urobilinogen Ur Leukocyte Esterase Urine RBC Urine WBC Ur Squamous Epith Cells Hyaline Casts Micro UA Comment Ur Microscopic Review Urine Culture Comments 07/15/18 18:22 WBC RBC Hgb Hct MCV MCH MCHC RDW Plt Count MPV Neut % (Auto) Lymph % (Auto) [place] % (Auto) Eos % (Auto) Baso % (Auto) Neut # (Auto) Lymph # (Auto) [place] # (Auto) Eos # (Auto) Baso # (Auto) WBC Differential Differential Comment PT INR APTT Sodium Potassium Chloride Carbon Dioxide Anion Gap BUN Creatinine Estimated GFR Random Glucose Calcium Total Bilirubin AST ALT Alkaline Phosphatase Total Protein Albumin Urine Color Yellow Urine Clarity Hazy H Urine pH 6.0 Ur Specific [place] 1.010 Urine Protein Negative Urine Glucose (UA) Negative Urine Ketones Negative Urine Occult Blood Small H Urine Nitrate Negative Urine Bilirubin Negative Urine Urobilinogen Less than 2 Ur Leukocyte Esterase Moderate H Urine RBC 2 Urine WBC 8 H Ur Squamous Epith Cells 4 Hyaline Casts 3 Micro UA Comment Culture indicated Ur Microscopic Review Not Reportable Urine Culture Comments Culture indicated - Diagnostic results Imaging: Impressions Chest X-Ray 07/15/18 14:23 CONCLUSION: No focal consolidation or effusion. Femur X-Ray 07/15/18 14:24 CONCLUSION: Right femoral neck fracture. I have reviewed the images for this radiology study. I agree with the interpretation given by the radiologist. Hip X-Ray 07/15/18 14:24 CONCLUSION: Right proximal femur fracture. I have reviewed the images for this radiology study. I agree with the interpretation given by the radiologist. Note that the fracture is a subcapital displaced femoral neck fracture Assessment and Plan - Assessment and Plan 83-year-old female status post fall with right displaced subcapital femoral neck fracture. We discussed that this is a serious condition effecting this patient's extremity. Nonoperative and operative options were discussed and reviewed. Potential consequences of both of these options were reviewed. Additionally I contacted the patient's son-in-law on the phone ([phone]) who is a international banker. I discussed with both him and the patient the treatment options. I do recommend urgent surgical management for this condition. Nonoperative management has significantly poor outcomes with severe dysfunction of the right hip with nonoperative management including inability to ambulate, bedsores, chronic pain, DVT, pulmonary embolus, and . Unfortunately, at this point I was unable to contact the patient's daughter who is an ICU nurse because she just boarded a plane coming down to [place]. I would recommend to move forward with surgical management for right hip hemiarthroplasty. The patient would like to move forward with urgent surgical management for this condition. This is surgery should be considered non-elective, given that this patient presented emergently to the hospital, and the decision to proceed with surgery was derived from this presentation. Significantly delaying surgery ( other than for medical clearance) has the potential to adversely effect the outcome for this patient's extremity. Management of pain associated with surgery will likely require the use of parental controlled substances. The risks and benefits of surgical management have been discussed in detail. The risks of surgery include, but are not limited to, injury to nerves, blood vessels, bleeding, infection, non-healing; loss of range on motion, dysfunction or weakness of the associated joints including leg length discrepancy or hip dislocation; blood clots, pneumonia, stroke, heart attack, and . - Attending Attestation Attending Attestation: A mid level provider in my office, nurse practitioner or PA, may see this patient on a follow up basis and continue to implement the plan including: starting or adjusting medications, injections of muscle, tendons, bursa or joints, cast application, orthotic or brace application, physical therapy, further radiographic studies including X-ray, MRI, CT, ultrasound or bone scan , vascular studies, neurological studies, or other specialist consultations, and proceeding with surgical management as appropriate.
[2018-07-16] MEDS: Senna/Docusate Sodium 8.6/50 MG Tablet PO SCH ×2 (08:25→21:22)
--- NOTE | 2018-07-16 09:00 | P.PNIM ---
Subjective Interval history: Patient is laying down in bed complaining of mild pain in the right hip. She is upset with herself for falling down at home. She does not have any other complaints. Physical Exam Vital signs: Vital Signs 07/15/18 14:09 07/15/18 15:11 07/15/18 20:00 Temperature 97.8 F 97.7 F Pulse Rate 76 66 72 Respiratory Rate 17 17 18 Blood Pressure 157/69 H 181/79 H 130/60 Pulse Oximetry 98 100 94 L 07/15/18 23:39 07/16/18 03:36 07/16/18 08:00 Temperature 97.8 F 97.8 F Pulse Rate 62 65 69 Respiratory Rate 18 16 16 Blood Pressure 112/57 L 110/55 L 134/61 Pulse Oximetry 95 95 91 L Intake & Output 07/15/18 07/16/18 07/16/18 18:59 06:59 18:59 Intake Total 240 / 240 Output Total 500 / 500 Balance -260 / -260 Weight 61.235 kg Intake: Oral 240 / 240 Output: Urine 500 / 500 Narrative: General patient complains of mild right-sided hip pain. HEENT extraocular movements are intact, clear oropharyngeal mucosa, no JVD Cardiovascular S1-S2 audible, RRR, no murmurs rubs or gallops Respiratory clear to auscultation bilaterally Abdomen soft, nontender, nondistended, normal bowel sounds Extremities no edema 2+ distal pulses in bilateral upper and lower extremities Neuro cranial nerves II through XII intact - Urinary Catheter Management Indwelling Urethral Catheter Cath placed during this visit: yes Reason for continuing: Other continuation reason Insertion date: 07/15/18 Insertion time: 18:09 Results - Labs CBC & Chem 7: 07/15/18 16:30 07/15/18 16:30 Laboratory Results - last 24 hr 07/15/18 07/15/18 07/15/18 16:30 16:30 16:30 WBC 11.1 H RBC 3.36 L Hgb 10.8 L Hct 31.6 L MCV 94.0 MCH 32.0 MCHC 34.1 RDW 13.3 Plt Count 204 MPV 8.7 Neut % (Auto) 85.9 H Lymph % (Auto) 6.6 L [place] % (Auto) 5.9 Eos % (Auto) 1.0 Baso % (Auto) 0.6 Neut # (Auto) 9.5 H Lymph # (Auto) 0.7 L [place] # (Auto) 0.7 Eos # (Auto) 0.1 Baso # (Auto) 0.1 WBC Differential . Differential Comment Auto diff final PT 11.0 INR 1.1 APTT 25.0 Sodium 138 Potassium 4.2 Chloride 106 Carbon Dioxide 26.2 Anion Gap 6 BUN 28 H Creatinine 1.00 Estimated GFR 53 L Random Glucose 97 Calcium 9.0 Total Bilirubin 0.3 AST 20 ALT 19 Alkaline Phosphatase 88 Total Protein 6.5 Albumin 3.3 L Urine Color Urine Clarity Urine pH Ur Specific [place] Urine Protein Urine Glucose (UA) Urine Ketones Urine Occult Blood Urine Nitrate Urine Bilirubin Urine Urobilinogen Ur Leukocyte Esterase Urine RBC Urine WBC Ur Squamous Epith Cells Hyaline Casts Micro UA Comment Ur Microscopic Review Urine Culture Comments 07/15/18 18:22 WBC RBC Hgb Hct MCV MCH MCHC RDW Plt Count MPV Neut % (Auto) Lymph % (Auto) [place] % (Auto) Eos % (Auto) Baso % (Auto) Neut # (Auto) Lymph # (Auto) [place] # (Auto) Eos # (Auto) Baso # (Auto) WBC Differential Differential Comment PT INR APTT Sodium Potassium Chloride Carbon Dioxide Anion Gap BUN Creatinine Estimated GFR Random Glucose Calcium Total Bilirubin AST ALT Alkaline Phosphatase Total Protein Albumin Urine Color Yellow Urine Clarity Hazy H Urine pH 6.0 Ur Specific [place] 1.010 Urine Protein Negative Urine Glucose (UA) Negative Urine Ketones Negative Urine Occult Blood Small H Urine Nitrate Negative Urine Bilirubin Negative Urine Urobilinogen Less than 2 Ur Leukocyte Esterase Moderate H Urine RBC 2 Urine WBC 8 H Ur Squamous Epith Cells 4 Hyaline Casts 3 Micro UA Comment Culture indicated Ur Microscopic Review Not Reportable Urine Culture Comments Culture indicated - Imaging Impressions Chest X-Ray 07/15/18 14:23 CONCLUSION: No focal consolidation or effusion. Femur X-Ray 07/15/18 14:24 CONCLUSION: Right femoral neck fracture. Hip X-Ray 07/15/18 14:24 CONCLUSION: Right proximal femur fracture. Assessment and Plan - Assessment (1) Femur fracture, right Code(s): S72.91XA - Unspecified fracture of right femur, initial encounter for closed fracture Status: Acute - Plan This patient is an 83-year-old female with a diagnosis of hypertension, dyslipidemia, coronary artery disease with stent in the past. Patient was brought in by ambulance after suffering a ground-level fall at home. The patient lives at home alone. She says she was climbing a short ladder and missed the bottom few steps and ended up falling down landing on her right hip. Imaging in the emergency department showed a right proximal femur fracture. 1. Right proximal femur fracture X-ray of the hip shows a proximal right femur fracture. Dr. Jones from [facility] was consulted to evaluate the patient. Plan is for right hip hemiarthroplasty today. Pain control with [place] and IV morphine for breakthrough pain. Patient will need physical therapy after surgery. I will follow-up in a.m. hemoglobin level tomorrow a.m. Patient is currently n.p.o. for the procedure. We will follow-up with Ortho for their recommendations post surgery. 2. Hypertension Blood pressure is currently under control. Her blood pressure medications will be adjusted if needed. No pharmacotherapy for DVT prophylaxis the patient will undergo surgery today. (1) Femur fracture, right Qualifiers: Encounter type: initial encounter Femur location: neck Fracture type: closed Qualified Code(s): S72.001A - Fracture of unspecified part of neck of right femur, initial encounter for closed fracture
[2018-07-16 09:20] LABS: Baso % (Auto) 0.5 % (0.0-2.0); Eos # (Auto) 0.3 th/mm3 (0.0-0.4); Eos % (Auto) 4.8 % (0.0-4.0); Hematocrit 31.3 % (35.0-46.0); Hemoglobin 10.7 gm/dL (11.6-15.3); Lymph # (Auto) 0.8 th/mm3 (1.0-4.8); Lymph % (Auto) 14.9 % (9.0-44.0); Mean Corpuscular HGB Conc 34.2 % (32.0-36.0); Mean Corpuscular Hemoglobin 32.2 pg (27.0-34.0); Mean Corpuscular Volume 94.1 fL (80.0-100.0); Mean Platelet Volume 8.5 fL (7.0-11.0); Mono # (Auto) 0.6 th/mm3 (0.0-0.9); Mono % (Auto) 11.2 % (0.0-8.0); Neut # (Auto) 3.7 th/mm3 (1.8-7.7); Neut % (Auto) 68.6 % (16.0-70.0); Platelet Count 195 th/mm3 (150-450); Red Blood Count 3.33 mil/mm3 (4.00-5.30); White Blood Count 5.5 th/mm3 (4.0-11.0)
[2018-07-16] MEDS ORDERED: fentaNYL Citrate Inj 100 MCG/2 ML Ampul ONE (09:20)
[2018-07-16] MEDS ORDERED: Lidocaine PF 1% Inj 5 ML Syringe OTHER ONE (09:28)
[2018-07-16] MEDS ORDERED: Glycopyrrolate Inj 1 MG/5 ML Syringe IV.PUSH ONE (09:28)
[2018-07-16] MEDS ORDERED: Neostigmine Inj 5 MG/5 ML Syringe IV.PUSH ONE (09:28)
[2018-07-16] MEDS ORDERED: Phenylephrine/NS 1000 MCG/10ML Syringe IV.PUSH ONE (09:28)
[2018-07-16] MEDS ORDERED: Bupivacaine PF 0.25% Inj 30 ML Vial ONE (09:37)
[2018-07-16] MEDS ORDERED: ceFAZolin 1 GM Premix Inj 1 GM/50 ML FROZ.PIGGY IV.SIG ONE (09:37)
[2018-07-16 09:44] LABS: Calcium 8.7 mg/dL (8.5-10.1); Carbon Dioxide 27.6 meq/L (21.0-32.0); Potassium 4.1 meq/L (3.5-5.1)
[2018-07-16] MEDS ORDERED: Sodium Chlor 0.9% Inj 40 ML, Bupivacaine Liposo PF 1.3% Inj 20 ML P-ARTICULR SCH ×2 (10:00)
[2018-07-16] MEDS ORDERED: Tranexamic Acid Inj 612 MG in Sodium Chlor 0.9% Inj 100 ML IV.SIG SCH (10:00)
[2018-07-16] MEDS ORDERED: Zolpidem Tartrate 5 MG Tablet PO PRN (11:13)
[2018-07-16] MEDS ORDERED: Aluminum/Magnesium/Simethacone Susp 30 ML UDC PO PRN (11:13)
[2018-07-16] MEDS ORDERED: Morphine Inj 4 MG/ML Vial IV.PUSH PRN (11:13)
[2018-07-16] MEDS ORDERED: Bisacodyl 10 MG Supp RECTAL PRN (11:13)
[2018-07-16] MEDS ORDERED: Post-op Orders (for Pharmacy) OTHER STA (11:13)
--- NOTE | 2018-07-16 11:17 | P.OP ---
Preoperative Diagnosis: Right hip displaced femoral neck fracture Postoperative Diagnosis: Same Date of procedure: 07/16/18 Procedure: Right hip hemiarthroplasty Anesthesia: GETA Surgeon: Deepak Early MD Footwear Factory Worker: URIEL Carvajal The surgical procedure was assisted by my Advanced Registered Nurse Practitioner. My CONTROL INSPECTOR presence was necessary throughout this case for the manipulation and positioning of the surgical extremity. My CONTROL INSPECTOR was assisting me throughout the duration of this procedure. The skill set of an Advance Registered Nurse Practitioner was medically necessary to complete this procedure. During the surgical case, the earth science technical officer was working at the back table and the Advance Registered Nurse Practitioner was directly assisting me. Operation and Findings: IMPLANT DESCRIPTION: 1. Corail femoral stem size 11, no collar, standard offset. 2. Bipolar femoral head/neck 28/45, +1.5. ESTIMATED BLOOD LOSS: 100 cc. PROCEDURE: The patient was brought back to the operative theatre. Adequate anesthesia was obtained. The patient received intravenous vancomycin and Ancef. The patient was carefully placed on the operative table in the lateral decubitus position with an axillary roll and a well-padded down leg. The lower extremity was prepped and draped in the usual sterile fashion. We proceeded with a standard curvilinear incision centered around the tip of the greater trochanter. We then dissected through the deep fascia and placed a Charnley retractor protecting the sciatic nerve. The greater trochanteric bursa was reflected. We then incised through the piriformis attachment and tagged this with a #2 FiberWire. We then incised through the capsule in a T- shaped fashion and tagged this with a #2 FiberWire as well. We identified a displaced femoral neck fracture. An osteotomy was performed through the residual femoral neck. This bone was then removed followed by removal of the femoral head. The acetabulum was inspected and adequate cartilage stock was identified. We then trialed the femoral head in the acetabulum. The proximal femur was prepared with a rongeur, then a box osteotome, then a canal finder followed by a lateralizing reamer. We sequentially broached the proximal femur. We calcar planed the proximal femur and irrigated removing any remnants of the bone. We trialed the hip with the broach in place. The final femoral stem was impacted into position. Leg lengths were evaluated. We evaluated stability of the hip with the hip in the "position of sleep" and the hip flexed up to 90 degrees and internally rotated. We additionally tested both a "shuck" test and hip extension, confirming there was no undue tension while flexing the knee to 90 degrees during full hip extension. The final bipolar head was impacted and the hip was reduced. Once again we irrigated. We then repaired the capsule and the piriformis with the FiberWire suture. The deep fascia was closed with a #2 Stratafix, followed by 2-0 Vicryl in the skin and Dermabond. The post-op plan is to weight-bear as tolerated. We will follow posterior total hip precautions, including the use of a canvas knee splint. DVT prophylaxis will be performed with SCDcarmen, SUZETTE antony, early mobilization, and Lovenox followed by aspirin.
[2018-07-16] MEDS: Sod Chloride 0.9% Inj 1,000 ML IV.CONT SCH (12:00)
[2018-07-16] MEDS ORDERED: SODIUM CHLOR 0.9% IV.SIG SCH (12:00)
[2018-07-16] MEDS ORDERED: TRANEXAMIC ACID IV.SIG SCH (12:00)
--- NOTE | 2018-07-16 12:54 | XR ---
EXAM DATE: 07/16/2018 11:11 AM EDT AGE/SEX: 83 years / Female INDICATIONS: Post surgical repair, hip replacement. CLINICAL DATA: This is the patient's initial encounter. Patient reports that signs and symptoms have been present for 1 day and indicates a pain score of 3/10. MEDICAL/SURGICAL HISTORY: None. None. COMPARISON: . FINDINGS: Right hip replacement is noted with prosthesis in good position. Mild degenerative changes are noted involving the left hip. Degenerative changes are also noted involving lower lumbar spine. Bilateral i liac stents are noted. CONCLUSION: 1. 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 2. Degenerative changes involving the left hip and lower lumbar spine. Electronically signed by: Cecil Reddy MD 07/16/2018 12:52 PM EDT
--- NOTE | 2018-07-16 17:54 | P.PN ---
Subjective Interval history: NOT SEEN Physical Exam Vital signs: Vital Signs 07/15/18 20:00 07/15/18 23:39 07/16/18 03:36 Temperature 97.7 F 97.8 F 97.8 F Pulse Rate 72 62 65 Respiratory Rate 18 18 16 Blood Pressure 130/60 112/57 L 110/55 L Pulse Oximetry 94 L 95 95 07/16/18 08:00 07/16/18 11:45 07/16/18 12:00 Temperature 97.5 F L Pulse Rate 69 86 72 Respiratory Rate 16 16 16 Blood Pressure 134/61 120/51 L 102/52 L Pulse Oximetry 91 L 96 97 07/16/18 12:15 07/16/18 12:30 07/16/18 16:00 Temperature 97.3 F L Pulse Rate 66 66 65 Respiratory Rate 16 16 18 Blood Pressure 98/52 L 112/54 L 114/53 L Pulse Oximetry 96 96 94 L Intake & Output 07/15/18 07/16/18 07/16/18 18:59 06:59 18:59 Intake Total 240 / 240 1756.12 / 1756.12 Output Total 500 / 500 500 / 500 Balance -260 / -260 1256.12 / 1256.12 Weight 61.235 kg 61.235 kg Intake: IV 256.12 / 256.12 Cyklokapron Inj 612 MG In NS 106.12 / 106.12 Inj 100 ML @ 200 mls/hr IV.SIG EDUCATION SPEC [facility] Rx#:[id number] Ancef 1 GM Premix Inj 1 gm In 50 / 50 50 ml @ 0 mls/hr IV.SIG .STK- MED ONE Rx#:[id number] Ancef Inj 1,000 MG In NS Inj 100 / 100 100 ML @ 200 mls/hr IV.SIG Q6H [facility] Rx#:[id number] Oral 240 / 240 Anesthesia Amount 1500 / 1500 Output: Urine 500 / 500 Estimated Blood Loss 100 / 100 Urine Amount (Catheter) 400 / 400 Indwelling Urethral Catheter 400 / 400 Other: Date of Last Bowel Movement 07/15/18 Weight On Admission 61.235 kg Narrative: General patient complains of mild right-sided hip pain. HEENT extraocular movements are intact, clear oropharyngeal mucosa, no JVD Cardiovascular S1-S2 audible, RRR, no murmurs rubs or gallops Respiratory clear to auscultation bilaterally Abdomen soft, nontender, nondistended, normal bowel sounds Extremities no edema 2+ distal pulses in bilateral upper and lower extremities Neuro cranial nerves II through XII intact - Urinary Catheter Management Indwelling Urethral Catheter Cath placed during this visit: yes Reason for continuing: Other continuation reason Insertion date: 07/15/18 Insertion time: 18:09 Results - Labs CBC & Chem 7: 07/16/18 08:30 07/16/18 08:30 Laboratory Results - last 24 hr 07/15/18 07/16/18 07/16/18 18:22 08:30 08:30 WBC 5.5 D RBC 3.33 L Hgb 10.7 L Hct 31.3 L MCV 94.1 MCH 32.2 MCHC 34.2 RDW 13.0 Plt Count 195 MPV 8.5 Neut % (Auto) 68.6 Lymph % (Auto) 14.9 [facility] % (Auto) 11.2 H Eos % (Auto) 4.8 H Baso % (Auto) 0.5 Neut # (Auto) 3.7 Lymph # (Auto) 0.[address] [facility] # (Auto) 0.6 Eos # (Auto) 0.3 Baso # (Auto) 0.0 WBC Differential . Differential Comment Auto diff final Sodium 138 Potassium 4.1 Chloride 105 Carbon Dioxide 27.6 Anion Gap 5 BUN 30 H Creatinine 1.15 H Estimated GFR 45 L Random Glucose 83 Calcium 8.7 Urine Color Yellow Urine Clarity Hazy H Urine pH 6.0 Ur Specific [place] 1.010 Urine Protein Negative Urine Glucose (UA) Negative Urine Ketones Negative Urine Occult Blood Small H Urine Nitrate Negative Urine Bilirubin Negative Urine Urobilinogen Less than 2 Ur Leukocyte Esterase Moderate H Urine RBC 2 Urine WBC 8 H Ur Squamous Epith Cells 4 Hyaline Casts 3 Micro UA Comment Culture indicated Ur Microscopic Review Not Reportable Urine Culture Comments Culture indicated Microbiology 07/15/18 18:22 Clean Catch Urine Urine Culture - Preliminary gram negative rods - Imaging Impressions ITS Impressions Chest X-Ray 07/15/18 14:23 CONCLUSION: No focal consolidation or effusion. Femur X-Ray 07/15/18 14:24 CONCLUSION: Right femoral neck fracture. Hip X-Ray 07/16/18 11:11 CONCLUSION: 1. 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 2. Degenerative changes involving the left hip and lower lumbar spine. - Procedures right hip hemiarthroplasty Assessment and Plan - Assessment (1) Femur fracture, right Code(s): S72.91XA - Unspecified fracture of right femur, initial encounter for closed fracture Status: Acute - Plan This patient is an 83-year-old female with a diagnosis of hypertension, dyslipidemia, coronary artery disease with stent in the past. Patient was brought in by ambulance after suffering a ground-level fall at home. The patient lives at home alone. She says she was climbing a short ladder and missed the bottom few steps and ended up falling down landing on her right hip. Imaging in the emergency department showed a right proximal femur fracture. 1. Right proximal femur fracture status post repair. Stable continue postoperative care with wound care, physical therapy and pain management with [place] and IV morphine. Counseled regarding narcotics. 2. Hypertension. Blood pressure is currently under control. Her blood pressure medications will be adjusted if needed. Pharmacotherapy VTE prophylaxis with lovenox Discharge Planning: SNF per ortho (1) Femur fracture, right Qualifiers: Encounter type: initial encounter Femur location: neck Fracture type: closed Qualified Code(s): S72.001A - Fracture of unspecified part of neck of right femur, initial encounter for closed fracture
--- NOTE | 2018-07-16 20:35 | ECG ---
Date Performed: 07/15/2018 Time Performed: 17:13:10 PTAGE: 83 years EKG: Sinus rhythm NORMAL ECG PREVIOUS TRACING : 08/05/2015 10.40 Since the previous tracing, no significant change noted DOCTOR: Lex Pillai Interpretating Date/Time 07/16/2018 20:34:43
[2018-07-16] MEDS: Multivitamin/Minerals Therapeutic Tablet PO SCH (21:22)
[2018-07-17] MEDS: Sod Chloride 0.9% Inj 1,000 ML IV.CONT SCH ×2 (00:07→21:01)
--- NOTE | 2018-07-17 08:41 | P.PNOP ---
Subjective Interval history: Moderate right hip pain. Her BP has been dropping when she gets up to ambulate. No new radiating leg pain. Physical Exam Vital signs: Vital Signs 07/16/18 11:45 07/16/18 12:00 07/16/18 12:15 Temperature 97.5 F L Pulse Rate 86 72 66 Respiratory Rate 16 16 16 Blood Pressure 120/51 L 102/52 L 98/52 L Pulse Oximetry 96 97 96 07/16/18 12:30 07/16/18 16:00 07/16/18 20:01 Temperature 97.3 F L 97.9 F Pulse Rate 66 65 66 Respiratory Rate 16 18 17 Blood Pressure 112/54 L 114/53 L 115/56 L Pulse Oximetry 96 94 L 96 07/16/18 21:47 07/17/18 00:06 07/17/18 01:47 Temperature 98.6 F Pulse Rate 68 Respiratory Rate 18 17 17 Blood Pressure 122/52 L Pulse Oximetry 97 07/17/18 03:52 07/17/18 04:59 Temperature 98.3 F Pulse Rate 67 Respiratory Rate 18 18 Blood Pressure 116/58 L Pulse Oximetry 96 Intake & Output 07/16/18 07/17/18 07/17/18 18:59 06:59 18:59 Intake Total 2256.12 / 2256.12 1560 / 1560 Output Total 500 / 500 850 / 850 Balance 1756.12 / 1756.12 710 / 710 Weight 61.235 kg Intake: IV 256.12 / 256.12 1200 / 1200 NS Inj 1,000 ML @ 80 mls/hr IV. 1000 / 1000 CONT .[id number] [facility] Rx#:[id number] Cyklokapron Inj 612 MG In NS 106.12 / 106.12 Inj 100 ML @ 200 mls/hr IV.SIG ACCOUNTS RECEIVABLE [employer]PER[employer]OR [facility] Rx#:[id number] Ancef 1 GM Premix Inj 1 gm In 50 / 50 50 ml @ 0 mls/hr IV.SIG .STK- MED ONE Rx#:[id number] Ancef Inj 1,000 MG In NS Inj 100 / 100 200 / 200 100 ML @ 200 mls/hr IV.SIG Q6H [facility] Rx#:[id number] Oral 500 / 500 360 / 360 Anesthesia Amount 1500 / 1500 Output: Estimated Blood Loss 100 / 100 Urine Amount (Catheter) 400 / 400 850 / 850 Indwelling Urethral Catheter 400 / 400 850 / 850 Other: Date of Last Bowel Movement 07/15/18 07/15/18 # Bowel Movements 0 Weight On Admission 61.235 kg Narrative: Laying in bed NAD With PT staff RLE Hip Dressing c/d/i, minimal drainage, no erythema +motor at distal, +sens, +nvi Neg homans Patient seen and evaluated by Dr. Keyla Hawkins - Constitutional no acute distress - Urinary Catheter Management Indwelling Urethral Catheter Cath placed during this visit: yes, but has since been removed by the nurse Reason for continuing: Continue criteria not met Insertion date: 07/15/18 Insertion time: 18:09 Removal date: 07/17/18 Removal time: 04:40 Results - Labs CBC & Chem 7: 07/16/18 08:30 07/16/18 08:30 Laboratory Results - last 24 hr 07/15/18 07/16/18 07/16/18 18:22 08:30 08:30 WBC 5.5 D RBC 3.33 L Hgb 10.7 L Hct 31.3 L MCV 94.1 MCH 32.2 MCHC 34.2 RDW 13.0 Plt Count 195 MPV 8.5 Neut % (Auto) 68.6 Lymph % (Auto) 14.9 [place] % (Auto) 11.2 H Eos % (Auto) 4.8 H Baso % (Auto) 0.5 Neut # (Auto) 3.7 Lymph # (Auto) 0.8 L [place] # (Auto) 0.6 Eos # (Auto) 0.3 Baso # (Auto) 0.0 WBC Differential . Differential Comment Auto diff final Sodium 138 Potassium 4.1 Chloride 105 Carbon Dioxide 27.6 Anion Gap 5 BUN 30 H Creatinine 1.15 H Estimated GFR 45 L Random Glucose 83 Calcium 8.7 Urine Color Yellow Urine Clarity Hazy H Urine pH 6.0 Ur Specific [place] 1.010 Urine Protein Negative Urine Glucose (UA) Negative Urine Ketones Negative Urine Occult Blood Small H Urine Nitrate Negative Urine Bilirubin Negative Urine Urobilinogen Less than 2 Ur Leukocyte Esterase Moderate H Urine RBC 2 Urine WBC 8 H Ur Squamous Epith Cells 4 Hyaline Casts 3 Micro UA Comment Culture indicated Urine Culture Comments Culture indicated Microbiology 07/15/18 18:22 Clean Catch Urine Urine Culture - Final Proteus vulgaris - Imaging Impressions Hip X-Ray 07/16/18 11:11 CONCLUSION: 1. 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 2. Degenerative changes involving the left hip and lower lumbar spine. - Procedures right hip hemiarthroplasty Assessment and Plan - Ortho Post Op Day # 1 - Assessment and Plan right displaced subcapital femoral neck fracture. pod#1 s/p R Hip bipolar Ortho stable. Orthostatic hypotension - repeat hg/hct today Pain moderately controlled. PO meds as needed. PT - WBAT RLE. Posterior hip precautions. Lovenox for dvt prophylaxis Dressing changes as written. Ice to operative site bid. D/C planning, HHC vs SNF
--- NOTE | 2018-07-17 08:59 | P.PN ---
Subjective Interval history: Follow-up right hip surgery. Patient feeling better now but earlier was weak when she got out of bed. According to nursing, patient probably was vasovagal. Patient states he is on aspirin, Protonix, statin and ARB. RN to update med list Physical Exam Vital signs: Vital Signs 07/16/18 11:45 07/16/18 12:00 07/16/18 12:15 Temperature 97.5 F L Pulse Rate 86 72 66 Respiratory Rate 16 16 16 Blood Pressure 120/51 L 102/52 L 98/52 L Pulse Oximetry 96 97 96 07/16/18 12:30 07/16/18 16:00 07/16/18 20:01 Temperature 97.3 F L 97.9 F Pulse Rate 66 65 66 Respiratory Rate 16 18 17 Blood Pressure 112/54 L 114/53 L 115/56 L Pulse Oximetry 96 94 L 96 07/16/18 21:47 07/17/18 00:06 07/17/18 01:47 Temperature 98.6 F Pulse Rate 68 Respiratory Rate 18 17 17 Blood Pressure 122/52 L Pulse Oximetry 97 07/17/18 03:52 07/17/18 04:59 Temperature 98.3 F Pulse Rate 67 Respiratory Rate 18 18 Blood Pressure 116/58 L Pulse Oximetry 96 Intake & Output 07/16/18 07/17/18 07/17/18 18:59 06:59 18:59 Intake Total 2256.12 / 2256.12 1560 / 1560 Output Total 500 / 500 850 / 850 Balance 1756.12 / 1756.12 710 / 710 Weight 61.235 kg Intake: IV 256.12 / 256.12 1200 / 1200 NS Inj 1,000 ML @ 80 mls/hr IV. 1000 / 1000 CONT .[id number] [facility] Rx#:[id number] Cyklokapron Inj 612 MG In NS 106.12 / 106.12 Inj 100 ML @ 200 mls/hr IV.SIG [employer] [facility] Rx#:[id number] Ancef 1 GM Premix Inj 1 gm In 50 / 50 50 ml @ 0 mls/hr IV.SIG .STK- MED ONE Rx#:[id number] Ancef Inj 1,000 MG In NS Inj 100 / 100 200 / 200 100 ML @ 200 mls/hr IV.SIG Q6H [facility] Rx#:[id number] Oral 500 / 500 360 / 360 Anesthesia Amount 1500 / 1500 Output: Estimated Blood Loss 100 / 100 Urine Amount (Catheter) 400 / 400 850 / 850 Indwelling Urethral Catheter 400 / 400 850 / 850 Other: Date of Last Bowel Movement 07/15/18 07/15/18 # Bowel Movements 0 Weight On Admission 61.235 kg Narrative: General well-developed well-nourished HEENT extraocular movements are intact, clear oropharyngeal mucosa, no JVD Cardiovascular S1-S2 audible, RRR, no murmurs rubs or gallops Respiratory clear to auscultation bilaterally Abdomen soft, nontender, nondistended, normal bowel sounds Extremities no edema 2+ distal pulses in bilateral upper and lower extremities Neuro cranial nerves II through XII intact - Urinary Catheter Management Indwelling Urethral Catheter Cath placed during this visit: yes, but has since been removed by the nurse Reason for continuing: Continue criteria not met Insertion date: 07/15/18 Insertion time: 18:09 Removal date: 07/17/18 Removal time: 04:40 Results - Labs CBC & Chem 7: 07/17/18 08:00 07/17/18 08:00 Laboratory Results - last 24 hr 07/15/18 07/16/18 07/16/18 18:22 08:30 08:30 WBC 5.5 D RBC 3.33 L Hgb 10.7 L Hct 31.3 L MCV 94.1 MCH 32.2 MCHC 34.2 RDW 13.0 Plt Count 195 MPV 8.5 Neut % (Auto) 68.6 Lymph % (Auto) 14.9 [place] % (Auto) 11.2 H Eos % (Auto) 4.8 H Baso % (Auto) 0.5 Neut # (Auto) 3.7 Lymph # (Auto) 0.8 L [place] # (Auto) 0.6 Eos # (Auto) 0.3 Baso # (Auto) 0.0 WBC Differential . Differential Comment Auto diff final Sodium 138 Potassium 4.1 Chloride 105 Carbon Dioxide 27.6 Anion Gap 5 BUN 30 H Creatinine 1.15 H Estimated GFR 45 L Random Glucose 83 Calcium 8.7 Urine Color Yellow Urine Clarity Hazy H Urine pH 6.0 Ur Specific [place] 1.010 Urine Protein Negative Urine Glucose (UA) Negative Urine Ketones Negative Urine Occult Blood Small H Urine Nitrate Negative Urine Bilirubin Negative Urine Urobilinogen Less than 2 Ur Leukocyte Esterase Moderate H Urine RBC 2 Urine WBC 8 H Ur Squamous Epith Cells 4 Hyaline Casts 3 Micro UA Comment Culture indicated Urine Culture Comments Culture indicated Microbiology 07/15/18 18:22 Clean Catch Urine Urine Culture - Final Proteus vulgaris - Imaging Impressions Hip X-Ray 07/16/18 11:11 CONCLUSION: 1. 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 2. Degenerative changes involving the left hip and lower lumbar spine. - Procedures right hip hemiarthroplasty Assessment and Plan - Assessment (1) Femur fracture, right Code(s): S72.91XA - Unspecified fracture of right femur, initial encounter for closed fracture Status: Acute - Plan This patient is an 83-year-old female with a diagnosis of hypertension, dyslipidemia, coronary artery disease with stent in the past. Patient was brought in by ambulance after suffering a ground-level fall at home. The patient lives at home alone. She says she was climbing a short ladder and missed the bottom few steps and ended up falling down landing on her right hip. Imaging in the emergency department showed a right proximal femur fracture. 1. Right proximal femur fracture status post repair. Stable continue postoperative care with wound care, physical therapy and pain management with [place] and IV morphine. Counseled regarding narcotics. 2. Hypertension. Mild hypotension today continue IV hydration. Hold BP medications for now 3. Urine culture with Proteus. Start Cipro 4. Postoperative anemia secondary to acute blood loss hemoglobin 9.4. Repeat hemoglobin in the morning Nursing to update med list pharmacotherapy VTE prophylaxis with lovenox Discharge Planning: Per outpatient case manager, [facility] has accepted the pt (1) Femur fracture, right Qualifiers: Encounter type: initial encounter Femur location: neck Fracture type: closed Qualified Code(s): S72.001A - Fracture of unspecified part of neck of right femur, initial encounter for closed fracture
[2018-07-17 09:02] LABS: Hematocrit 28.8 % (35.0-46.0); Hemoglobin 9.6 gm/dL (11.6-15.3)
[2018-07-17 09:06] LABS: Calcium 8.1 mg/dL (8.5-10.1); Carbon Dioxide 25.3 meq/L (21.0-32.0); Magnesium 1.8 mg/dL (1.5-2.5); Potassium 4.5 meq/L (3.5-5.1)
[2018-07-17] MEDS: Multivitamin/Minerals Therapeutic Tablet PO SCH ×2 (10:07→21:16)
[2018-07-17] MEDS: Enoxaparin Inj 40 MG/0.4 ML Syringe SQ SCH (10:08)
[2018-07-17] MEDS: Senna/Docusate Sodium 8.6/50 MG Tablet PO SCH ×2 (10:08→21:15)
[2018-07-17] MEDS: Ciprofloxacin 250 MG Tablet PO SCH (17:42)
[2018-07-18] MEDS: Sod Chloride 0.9% Inj 1,000 ML IV.CONT SCH (03:39)
[2018-07-18 06:30] LABS: Baso % (Auto) 0.2 % (0.0-2.0); Eos # (Auto) 0.1 th/mm3 (0.0-0.4); Hematocrit 29.9 % (35.0-46.0); Hemoglobin 10.6 gm/dL (11.6-15.3); Lymph # (Auto) 0.9 th/mm3 (1.0-4.8); Lymph % (Auto) 10.1 % (9.0-44.0); Mean Corpuscular HGB Conc 35.3 % (32.0-36.0); Mean Corpuscular Hemoglobin 32.6 pg (27.0-34.0); Mean Corpuscular Volume 92.2 fL (80.0-100.0); Mean Platelet Volume 9.1 fL (7.0-11.0); Mono % (Auto) 11.7 % (0.0-8.0); Neut # (Auto) 6.6 th/mm3 (1.8-7.7); Platelet Count 180 th/mm3 (150-450); Red Blood Count 3.24 mil/mm3 (4.00-5.30); Red Cell Distribution Width 13.5 % (11.6-17.2); White Blood Count 8.6 th/mm3 (4.0-11.0)
[2018-07-18 07:28] LABS: Calcium 8.9 mg/dL (8.5-10.1); Carbon Dioxide 28.8 meq/L (21.0-32.0); Magnesium 1.9 mg/dL (1.5-2.5)
[2018-07-18] MEDS: Multivitamin/Minerals Therapeutic Tablet PO SCH (08:53)
[2018-07-18] MEDS: Senna/Docusate Sodium 8.6/50 MG Tablet PO SCH (08:53)
[2018-07-18] MEDS: Ciprofloxacin 250 MG Tablet PO SCH (08:53)
[2018-07-18] MEDS: Enoxaparin Inj 40 MG/0.4 ML Syringe SQ SCH (10:38)
--- NOTE | 2018-07-18 10:48 | P.PN ---
Subjective Interval history: Follow-up anemia and hypotension. Improved BP. Positive BM. Physical Exam Vital signs: Vital Signs 07/17/18 12:00 07/17/18 16:00 07/17/18 20:00 Temperature 97.4 F L 98.0 F 100.1 F H Pulse Rate 71 74 81 Respiratory Rate 16 16 16 Blood Pressure 97/51 L 114/57 L 182/77 H Pulse Oximetry 92 L 93 L 93 L 07/18/18 00:00 07/18/18 01:20 07/18/18 04:40 Temperature 99.2 F 98.8 F Pulse Rate 91 H 85 Respiratory Rate 16 18 16 Blood Pressure 180/76 H 164/76 H Pulse Oximetry 93 L 92 L 07/18/18 05:04 Temperature Pulse Rate Respiratory Rate 17 Blood Pressure Pulse Oximetry Intake & Output 07/17/18 07/18/18 07/18/18 18:59 06:59 18:59 Intake Total 600 / 600 1000 / 1000 Balance 600 / 600 1000 / 1000 Intake: IV 1000 / 1000 NS Inj 1,000 ML @ 80 mls/hr IV. 1000 / 1000 CONT .[id number] [facility] Rx#:[id number] Oral 600 / 600 Other: # Voids 3 7 Date of Last Bowel Movement 07/15/18 07/15/18 07/15/18 Narrative: General well-developed well-nourished HEENT extraocular movements are intact, clear oropharyngeal mucosa, no JVD Cardiovascular S1-S2 audible, RRR, no murmurs rubs or gallops Respiratory clear to auscultation bilaterally Abdomen soft, nontender, nondistended, normal bowel sounds Extremities no edema 2+ distal pulses in bilateral upper and lower extremities Neuro cranial nerves II through XII intact - Urinary Catheter Management Indwelling Urethral Catheter Cath placed during this visit: yes, but has since been removed by the nurse Reason for continuing: Continue criteria not met Insertion date: 07/15/18 Insertion time: 18:09 Removal date: 07/17/18 Removal time: 04:40 Results - Labs CBC & Chem 7: 07/18/18 05:59 07/18/18 05:59 Laboratory Results - last 24 hr 07/18/18 07/18/18 05:59 05:59 WBC 8.6 RBC 3.24 L Hgb 10.6 L Hct 29.9 L MCV 92.2 MCH 32.6 MCHC 35.3 RDW 13.5 Plt Count 180 MPV 9.1 Neut % (Auto) 77.0 H Lymph % (Auto) 10.1 [place] % (Auto) 11.7 H Eos % (Auto) 1.0 Baso % (Auto) 0.2 Neut # (Auto) 6.6 Lymph # (Auto) 0.9 L [place] # (Auto) 1.0 H Eos # (Auto) 0.1 Baso # (Auto) 0.0 WBC Differential . Differential Comment Auto diff final Sodium 135 L Potassium 4.0 Chloride 100 Carbon Dioxide 28.8 Anion Gap 6 BUN 15 Creatinine 0.94 Estimated GFR 57 L Random Glucose 116 H Calcium 8.9 D Magnesium 1.9 Microbiology 07/15/18 18:22 Clean Catch Urine Urine Culture - Final Proteus vulgaris - Imaging ITS Impressions Chest X-Ray 07/15/18 14:23 CONCLUSION: No focal consolidation or effusion. Femur X-Ray 07/15/18 14:24 CONCLUSION: Right femoral neck fracture. Hip X-Ray 07/16/18 11:11 CONCLUSION: 1. 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 2. Degenerative changes involving the left hip and lower lumbar spine. - Procedures right hip hemiarthroplasty Assessment and Plan - Assessment (1) Femur fracture, right Code(s): S72.91XA - Unspecified fracture of right femur, initial encounter for closed fracture Status: Acute - Plan This patient is an 83-year-old female with a diagnosis of hypertension, dyslipidemia, coronary artery disease with stent in the past. Patient was brought in by ambulance after suffering a ground-level fall at home. The patient lives at home alone. She says she was climbing a short ladder and missed the bottom few steps and ended up falling down landing on her right hip. Imaging in the emergency department showed a right proximal femur fracture. 1. Right proximal femur fracture status post repair. Stable continue postoperative care with wound care, physical therapy and pain management with [place] and IV morphine. Counseled regarding narcotics. 2. Hypertension. Resolved hypotension, hypertensive today discontinue IV hydration before restarting ARB 3. Urine culture with Proteus. Ct Cipro 4. Postoperative anemia secondary to acute blood loss hemoglobin 9.4. Stable Nursing to update med list pharmacotherapy VTE prophylaxis with lovenox Discharge Planning: Per [employer], [facility] has accepted the pt pending orthopedic surgery clearance (1) Femur fracture, right Qualifiers: Encounter type: subsequent encounter Fracture type: closed Fracture alignment: displaced
[2018-07-18 11:20] VITALS: BP 149/75; PULSE 79; RESP 18; TEMP 98.2; O2SAT 94
--- NOTE | 2018-07-18 12:50 | P.PNOP ---
Subjective Interval history: The patient is resting comfortably in bed in no acute distress. The patient's daughter is at bedside. The patient reports minimal pain to the right hip. Physical Exam Vital signs: Vital Signs 07/17/18 16:00 07/17/18 20:00 07/18/18 00:00 Temperature 98.0 F 100.1 F H 99.2 F Pulse Rate 74 81 91 H Respiratory Rate 16 16 16 Blood Pressure 114/57 L 182/77 H 180/76 H Pulse Oximetry 93 L 93 L 93 L 07/18/18 01:20 07/18/18 04:40 07/18/18 05:04 Temperature 98.8 F Pulse Rate 85 Respiratory Rate 18 16 17 Blood Pressure 164/76 H Pulse Oximetry 92 L 07/18/18 08:00 Temperature 98.2 F Pulse Rate 79 Respiratory Rate 18 Blood Pressure 149/75 H Pulse Oximetry 94 L Intake & Output 07/17/18 07/18/18 07/18/18 18:59 06:59 18:59 Intake Total 600 / 600 1000 / 1000 Balance 600 / 600 1000 / 1000 Intake: IV 1000 / 1000 NS Inj 1,000 ML @ 80 mls/hr IV. 1000 / 1000 CONT .[id number] [facility] Rx#:[id number] Oral 600 / 600 Other: # Voids 3 7 Date of Last Bowel Movement 07/15/18 07/15/18 07/15/18 Narrative: The patient's dressing is intact with small serosanguineous drainage. I did remove the dressing today and applied a clean dressing. The patient's Dermabond mesh is intact. There is a small area of bleeding about the distal aspect of the incision. There is no redness or signs of infection. EHL/TA/G are intact. 2+ pedal pulse. The patient's calf is soft and nontender. Sensation is intact to light touch distally. The knee immobilizer is in place - Urinary Catheter Management Indwelling Urethral Catheter Cath placed during this visit: yes, but has since been removed by the nurse Reason for continuing: Continue criteria not met Insertion date: 07/15/18 Insertion time: 18:09 Removal date: 07/17/18 Removal time: 04:40 Results - Labs CBC & Chem 7: 07/18/18 05:59 07/18/18 05:59 Laboratory Results - last 24 hr 07/18/18 07/18/18 05:59 05:59 WBC 8.6 RBC 3.24 L Hgb 10.6 L Hct 29.9 L MCV 92.2 MCH 32.6 MCHC 35.3 RDW 13.5 Plt Count 180 MPV 9.1 Neut % (Auto) 77.0 H Lymph % (Auto) 10.1 [place] % (Auto) 11.7 H Eos % (Auto) 1.0 Baso % (Auto) 0.2 Neut # (Auto) 6.6 Lymph # (Auto) 0.9 L [place] # (Auto) 1.0 H Eos # (Auto) 0.1 Baso # (Auto) 0.0 WBC Differential . Differential Comment Auto diff final Sodium 135 L Potassium 4.0 Chloride 100 Carbon Dioxide 28.8 Anion Gap 6 BUN 15 Creatinine 0.94 Estimated GFR 57 L Random Glucose 116 H Calcium 8.9 D Magnesium 1.9 - Procedures right hip hemiarthroplasty Assessment and Plan - Assessment and Plan right displaced subcapital femoral neck fracture. pod#2 s/p R Hip bipolar Ortho stable. Pain moderately controlled. PO meds as needed. PT - WBAT RLE. Posterior hip precautions. Lovenox for dvt prophylaxis Dressing changes as written. Ice to operative site bid. D/C planning, Patient accepted to [facility] and will transition to this floor later today. Follow-up in the office with Dr. Early or Julián Scott APRN in 1-2 weeks.
--- NOTE | 2018-07-18 16:19 | P.DS ---
Date of admission: 07/15/18 18:12 Primary care physician: UNKNOWN Brief History from admission: 83-year-old female with PMH significant for HTN, HLD, CAD with stenting in the past and chronic constipation who presents to the ER via [facility] following a fall at home. Patient is seen and examined in the ER with friend Kimberly at bedside. Patient reports that she was at home going up and down her loft with the use of a ladder when at one point when she was making her way down she slipped. She reports falling on the floor and landing on her right side. With pain shooting to her right leg. Worse with movement, improved with rest. She denies hitting her head, no LOC. Denies any dizziness, lightheadedness, chest pain or palpitations prior to fall. At the current moment she is pain free as she received IV Morphine. She denies any numbness or tingling to right lower extremity. Patient and neighbor are both concerned over what the surgery will entail. They are requesting that the orthopedic doctor call patient's daughter prior to surgery. This was communicated to nurse. DS: Diagnosis - Discharge Diagnosis (1) Femur fracture, right Status: Acute DS: Medications - Discharge Medications Prescriptions: aspirin 325 mg PO DAILY 30 Days #30 tab ciprofloxacin HCl 250 mg PO Q12HR #12 tab enoxaparin [Lovenox] 40 mg SUB-Q DAILY 10 Days #10 units hydrocodone-acetaminophen [[place]] 1 - 2 tab PO Q4-6H #50 tab DS: Summary Hospital Course: This patient is an 83-year-old female with a diagnosis of hypertension, dyslipidemia, coronary artery disease with stent in the past. Patient was brought in by ambulance after suffering a ground-level fall at home. The patient lives at home alone. She says she was climbing a short ladder and missed the bottom few steps and ended up falling down landing on her right hip. Imaging in the emergency department showed a right proximal femur fracture. 1. Right proximal femur fracture status post repair. Stable continue postoperative care with wound care, physical therapy and pain management with [place] and IV morphine. Counseled regarding narcotics. 2. Hypertension. Resolved hypotension, hypertensive today discontinue IV hydration before restarting ARB 3. Urine culture with Proteus. Ct Cipro 4. Postoperative anemia secondary to acute blood loss hemoglobin 9.4. Stable Nursing to update med list pharmacotherapy VTE prophylaxis with lovenox - Time Spent with Patient Total time spent providing and/or coordinating discharge services: Greater than 30 minutes - Quality: VTE Deep Vein Thrombosis/Pulmonary Embolism Present on Admission: No Exam Vital signs: Vital Signs 07/17/18 20:00 07/18/18 00:00 07/18/18 01:20 Temperature 100.1 F H 99.2 F Pulse Rate 81 91 H Respiratory Rate 16 16 18 Blood Pressure 182/77 H 180/76 H Pulse Oximetry 93 L 93 L 07/18/18 04:40 07/18/18 05:04 07/18/18 08:00 Temperature 98.8 F 98.2 F Pulse Rate 85 79 Respiratory Rate 16 17 18 Blood Pressure 164/76 H 149/75 H Pulse Oximetry 92 L 94 L Intake & Output 07/17/18 07/18/18 07/18/18 18:59 06:59 18:59 Intake Total 600 / 600 1000 / 1000 Balance 600 / 600 1000 / 1000 Intake: IV 1000 / 1000 NS Inj 1,000 ML @ 80 mls/hr IV. 1000 / 1000 CONT .[id number] [facility] Rx#:[id number] Oral 600 / 600 Other: # Voids 3 7 Date of Last Bowel Movement 07/15/18 07/15/18 07/15/18 Narrative: General well-developed well-nourished HEENT extraocular movements are intact, clear oropharyngeal mucosa, no JVD Cardiovascular S1-S2 audible, RRR, no murmurs rubs or gallops Respiratory clear to auscultation bilaterally Abdomen soft, nontender, nondistended, normal bowel sounds Extremities no edema 2+ distal pulses in bilateral upper and lower extremities Neuro cranial nerves II through XII intact Results Procedures completed during hospitalization: right hip hemiarthroplasty Labs on day of discharge: Labs from last 24 hours 07/18/18 07/18/18 05:59 05:59 WBC 8.6 RBC 3.24 L Hgb 10.6 L Hct 29.9 L MCV 92.2 MCH 32.6 MCHC 35.3 RDW 13.5 Plt Count 180 MPV 9.1 Neut % (Auto) 77.0 H Lymph % (Auto) 10.1 [place] % (Auto) 11.7 H Eos % (Auto) 1.0 Baso % (Auto) 0.2 Neut # (Auto) 6.6 Lymph # (Auto) 0.9 L [place] # (Auto) 1.0 H Eos # (Auto) 0.1 Baso # (Auto) 0.0 WBC Differential . Differential Comment Auto diff final Sodium 135 L Potassium 4.0 Chloride 100 Carbon Dioxide 28.8 Anion Gap 6 BUN 15 Creatinine 0.94 Estimated GFR 57 L Random Glucose 116 H Calcium 8.9 D Magnesium 1.9 - Impressions ITS Impressions Chest X-Ray 07/15/18 14:23 CONCLUSION: No focal consolidation or effusion. Femur X-Ray 07/15/18 14:24 CONCLUSION: Right femoral neck fracture. Hip X-Ray 07/16/18 11:11 CONCLUSION: 1. 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 2. Degenerative changes involving the left hip and lower lumbar spine. Discharge Plan - Discharge Disposition Patient Disposition: 63 Re[facility] Inpatient - Discharge Condition Condition: Stable - Discharge Order Discharge Orders: Discharge Order (Routine); Ordered 07/18/18 Ordered By: Merlin Schmid - Physicians Team Primary Care Provider: UNKNOWN, Attending Provider: Merlin Schmid Other Providers: Deepak Early MD
== END 2018-07-18 12:37 ==
LOC: NEPC 13:30 → NEDA 13:30 → NEPGCP 19:23 → N06 07-16 09:13
PROVIDERS: ADMIT Internal Medicine; ATTEND Internal Medicine